=== PATIENT | female | born 1950 | race African-American/Black ===

== ENCOUNTER → 2016-11-12 | Outpatient (CLI) | payer OTHER ==
[~2016-11-12] VITALS: Ht 157.5 cm; Wt 76.1 kg
[~2016-11-12] MED LIST: AMBIEN 10 MG TA10 MG PO; AMBIEN 5 MG TABL5 M1 PO; AMLODIPINE BESY10 MG PO; APAP500 PO; ASPIRIN325 PO; BUSPIRONE HCL10 MG PO; CARBAMAZEPINE200 M2 PO; CELEXA40 MG PO; COLACE 100 MG100 MG PO; CYMBALTA PO; ENDOCET 5-3251 EACH PO; EXCEDRIN CAPLE1 EACH PO; FENTANYL PA25 MCG/HR TRANSDERM; HYDROCHLOROTH12.5 M1 PO; HYDROCHLOROTHIA25 M1 PO; HYDROCODON-ACE1 EAC4 PO; HYDROCODON-ACE1 EAC5 PO; HYDROCODONE-AP1 EA14 PO; HYDROCODONE-APA1 TA1 PO; IBUPROFEN 800800 M1 PO; LEVOTHROID75 MCG PO; LYRICA; LYRICA 75 MG CA75 MG PO; LYRICA25 PO; MEDROLDOSEPACK; MOBIC15 MG PO; NORCO 10-325 T1 EAC1 PO; NORCO 10-325 T1 EACH PO; NORCO 5-325 TA1 EACH PO; OXYBUTYNIN 5 MG5 M1 PO; OXYBUTYNIN 5 MG5 M2 PO; OXYCODONE HCL 55 MG PO; OXYCODONE HCL15 MG PO; OXYCODONE-ACET1 EAC2 PO; OXYCODONE-ACET1 EACH PO; OXYCODONE-APAP1 EAC6 PO; OXYCONTIN CR 2020 MG PO; OXYCONTIN20 M1 PO; OXYCONTIN30 MG PO; OXYCONTIN40 MG PO; PAMELOR25 MG PO; PERCOCET 5-3251 EACH PO; PERCOCET 7.5-31 EACH PO; PLAVIX 75 MG TA75 M1 PO; PREDNISONE 10 M10 M1 PO; PREDNISONE 5 MG5 MG PO; PREMARIN0.45 MG PO; PREMARIN0.625 MG PO; PRISTIQ50 MG PO; RESTORIL15 MG PO; ROBAXIN500 MG PO; SYNTHROID75 MCG PO; TIROSINT75 MCG PO; TOVIAZ4 MG PO; TRAMADOL 50 MG50 MG PO; VALIUM10 MG PO; VALIUM5 MG PO; VOLTAREN GEL 1100 G1; VOLTAREN GEL 1100 G1 TOP; ZANAFLEX2 M1 PO; ZOLOFT50 MG PO
--- NOTE | ~2016-11-12 | HPC ---
[facility] [place] [address] PAIN MANAGEMENT CONSULTATION Name: ANIRUDH DUQUE Room #: REG BRADEN Alcides#: [id number] Admission: 11/12/16 Attend Phys: David Buchanan DO Discharge: Date of : 48 Report #: [id number] THIS REPORT FOR: //name// CC: Vance Buchanan The patient is a 66-year-old female being treated for symptomatic lumbar radiculopathy status post decompressive laminectomy, chronic pain syndrome requiring complex medication management. Comorbidity includes trochanteric bursitis, left greater than right. Last seen in the pain clinic 09/14/2016. Continued on baseline narcotic including OxyContin 40 mg b.i.d., Percocet 10/325 up to 4 a day, limit to 100 tablets for 30 days. Returns to pain clinic today. At that last visit, we had slightly decreased her p.r.n. medication, dropped Percocet 10/325 down to 7.5/325 tablet. The patient returns to pain clinic today. She typically is treated by Dr. Toño Christie. She notes current medications are generally providing sufficient analgesia to participate in activities of daily living, albeit her pain remains fairly problematic at a "8-9" on a 0-10 visual analog scale, low back, left hip greater than right pain, chronic dull aching, exacerbated with standing and walking. PHYSICAL EXAMINATION: Shows 66-year-old female, BMI is 30.7 kg/m2. Vital signs stable as noted in the EMR. Rises from chair using the armrest, modestly antalgic gait, slightly limited range of motion of left ankle, status post prior surgery here. We reviewed the fact that opiate medications are being used to provide analgesia adequate to support activities of daily living, not attempting to achieve a specific pain score on the 0-10 Visual Analog Scale. The current opiate medications are providing sufficient analgesia to allow the patient to participate in activities of daily living. The patient is not exhibiting any aberrant behavior suggestive of drug diversion. The patient is not having any adverse reactions to medications. The patient is not suffering from daytime somnolence or mental acuity changes. The patient is managing opiate-induced constipation with appropriate fdmn-cbe-dwdybyd agents and dietary considerations. The patient was counseled on concern for caution with operating a motor vehicle while using opiate medications. A physical exam was performed and the patient's functional status was evaluated. All patients with back pain were advised against the bed rest greater than 4 days and were advised to return to normal activities. Pain score assessment was noted and the treatment plan was reviewed with the patient. All current medications, both prescribed and OTC were reviewed and reconciled on the electronic medical record. Tobacco screening was accomplished and smoking cessation was advised when indicated. BMI was noted and diet/[place] [address] PAIN MANAGEMENT CONSULTATION Name: MARCIANO DEL CIDANIRUDH Room #: REG BRADEN Mcgrath#: [id number] Admission: 11/12/16 Attend Phys: David Buchanan DO Discharge: Date of : 48 Report #: [id number] modification was recommended for all patients following outside normal parameters. I reviewed with the patient today their responsibilities to safeguard prescription medications, reviewed their responsibility to utilize medications only as prescribed by the physician. They are to seek and receive pain medications only from 1 physician group ( [facility]). They are to use 1 pharmacy and keep the clinic informed if they change pharmacies. Their responsibilities include making followup visits in a timely fashion and to avoid abrupt discontinuation of medication usage. Their responsibilities further include bringing their medications (bottles from the pharmacy with residual pills) to the visit for possible confirmation of pill counts and the patient understands it is their responsibility to submit to random drug screens to ensure both that the medications prescribed are present, and that no other controlled substances are present. All prescriptions provided today were generated electronically. ASSESSMENT: Symptomatic lumbar radiculopathy status post decompressive laminectomy, chronic pain syndrome requiring complex medication management, stable on baseline medications. RECOMMENDATION: Continue OxyContin 40 mg b.i.d., Percocet 7.5/325, limit to 100 tablets for 30 days. I have taken the liberty of writing for 2 months of current medication. We did review with the patient that she has had a relatively supratherapeutic dose of opiate, approximately 150 mEq of morphine. I did review with her that many insurance companies were limiting their coverage to about 100 mEq of morphine and we did briefly discuss reasons for this including opiate-induced hyperalgesia, higher incidence of complications, morbidity and mortality. Ultimately, the patient was discharged in good and stable condition with baseline medication. Follow up with Dr. Christie in 2 months. <ELECTRONICALLY SIGNED> By: David Buchanan DO 11/19/16 0858 [id number] David Buchanan DO /nt
[2016-11-12 12:51] VITALS: BP 119/68
== END | disposition home or self-care (01) ==
LOC: PAIN 06:49
DX: M54.16 Radiculopathy, lumbar region (principal); G89.4 Chronic pain syndrome; Z98.890 Other specified postprocedural states; Z87.891 Personal history of nicotine dependence

== ENCOUNTER → 2017-04-08 | Outpatient (CLI) | payer OTHER ==
[~2017-04-08] VITALS: Ht 157.5 cm; Wt 77.1 kg
[~2017-04-08] MED LIST changes: +CELEBREX 200 M200 MG PO; +OXYCODONE HCL E20 MG PO
--- NOTE | ~2017-04-08 | HPC ---
[facility] [address] [place] [address] PAIN MANAGEMENT CONSULTATION Name: ANIRUDH DUQUE Room #: REG BRADEN Sy.#: [id number] Admission: 04/08/17 Attend Phys: Toño Christie MD Discharge: Date of : 48 Report #: [id number] THIS REPORT FOR: //name// CC: Vance Christie DATE OF SERVICE: 04/08/2017 Followup visit for trochanteric bursitis and chronic low back pain status post decompressive laminectomy. The patient returns to pain clinic today and is doing well tapering her OxyContin from 40 to 30 twice a day. I told her today we are going to try and taper her further from 30 to 20 and I am going to add Celebrex 200 mg once daily for arthropathic pain throughout her back and inner hip. She would like the trochanteric bursa injection. MEDICATIONS: Reviewed and reconciled. PHYSICAL EXAMINATION: VITAL SIGNS: Blood pressure is 130/75, heart rate is 76, respirations 20. She has tenderness over the greater trochanter that radiates into the groin. She has pain with internal and external rotation, mild pain across the low back is noted. She has left low back pain and radiculopathy that has been in the past. PHYSICAL EXAMINATION: Pleasant, alert and oriented. She is well-groomed. Her voice is strong and fluent. She has no signs of overmedication, anxiety or depression. Today, blood pressure is 166/86, heart rate 97, BMI is 31.1. She has tenderness across her low back and positive straight leg raising on the left that is mild and mostly into the hip and down into the groin. She has pain with internal and external rotation of the hips. IMPRESSION: 1. Trochanteric bursitis. 2. Osteoarthritis, left hip. 3. Post-laminectomy syndrome. 4. History of depression and anxiety, much improved medication. 5. Cerebral aneurysm treated by coiling and interventional radiology 2 years ago. 6. Management of high risk medication. PLAN: I renewed her medications, current dose of OxyContin 20 mg b.i.d., oxycodone 7.5 one tablet q. 4-6 hours p.r.n., a total of 100 tablets per month. PROCEDURE: Trochanteric bursa injection. Skin was prepped with ChloraPrep. Skin anesthetized and a 25-gauge needle was used to infiltrate a total of 7 mL of 0.25% bupivacaine mixed with 40 mg of triamcinolone. She tolerated the [address] [address] PAIN MANAGEMENT CONSULTATION Name: ANIRUDH DUQUE Room #: REG [facility] Yossi.#: [id number] Admission: 04/08/17 Attend Phys: Toño Christie MD Discharge: Date of : 48 Report #: [id number] procedure well and was observed for 30 minutes and discharged. Follow up as needed. By: [id number] MD elvie Alford
[2017-04-08 10:16] VITALS: BP 166/86
== END | disposition home or self-care (01) ==
LOC: PAIN 06:07
DX: M70.62 Trochanteric bursitis, left hip (principal); G89.29 Other chronic pain; M16.12 Unilateral primary osteoarthritis, left hip; M96.1 Postlaminectomy syndrome, not elsewhere classified; F32.89 Other specified depressive episodes; F41.8 Other specified anxiety disorders; F11.20 Opioid dependence, uncomplicated; Z86.69 Personal history of other diseases of the nervous system and sense organs; Z87.891 Personal history of nicotine dependence

== ENCOUNTER → 2017-07-22 | Outpatient (CLI) | payer OTHER ==
[~2017-07-22] VITALS: Ht 157.5 cm; Wt 78.5 kg
--- NOTE | ~2017-07-22 | HPC ---
[facility] [place] [address] PAIN MANAGEMENT CONSULTATION Name: ANIRUDH TARIQ Room #: REG BRADEN Sy.#: [id number] Admission: 07/22/17 Attend Phys: Toño Christie MD Discharge: Date of : 48 Report #: [id number] THIS REPORT FOR: //name// CC: Vance Christie DATE OF SERVICE: 07/22/2017 Followup visit for chronic back pain, status post extensive lumbar fusion. The patient returns to pain clinic today complaining of pain at the level of 8/10. Pain is in her low back, radiates into her left leg. It follows an L4-L5 distribution and is chronic. It has been a worse at bit lately. She continues on pain medication under terms of an opioid agreement. The patient complains of pain in her left ankle, which was involvement in a crush injury. She has pain that radiates all the away from her back through her hip down her leg to the ankle. MEDICATIONS: OxyContin 20 mg b.i.d., oxycodone 7.5/325 one tablet t.i.d. for breakthrough. I provided with 100 tablets per month with an extra tablet on days when the pain is severe. She also uses Celebrex as a co-analgesic 200 mg once daily without side effects. Other symptoms at this time include shortness of breath with exertion, loss of appetite, constipation, fatigue, weakness, headaches, insomnia, nervousness, depression. PHYSICAL EXAMINATION: The patient is pleasant. She does not appear overmedication, depressed or anxious today. Her blood pressure is 153/90, heart rate is 103, BMI is 31.6. She is able to move from sitting to standing position and ambulate without a cane or walking assistance. Her gait seems stable. She has pain across her low back with forward flexion and extension. There is limitations in the lumbosacral segment where she has pedicle screws and rods. She has tenderness to the left of midline that radiates down into the left hip, left leg and calf. Straight leg raising is positive on that side. Sensation is intact. There is no focal weakness noted. IMPRESSION: 1. Chronic back pain with radiculopathy secondary to nerve impingements on the left. Post-laminectomy syndrome. 2. History of trochanteric bursitis, which has resolved previously with injection. 3. History of depression and anxiety, stable and improved with medication. 4. Management of high risk medication under terms of written opioid agreement. [address] [address] PAIN MANAGEMENT CONSULTATION Name: ANIRUDH TARIQ Room #: REG [facility].#: [id number] Admission: 07/22/17 Attend Phys: Toño Christie MD Discharge: Date of : 48 Report #: [id number] Current dose of medication is in long-acting and short-acting oxycodone, 62 mg per day, which equates to roughly 100 morphine milligram equivalents per day. We have tried to reduce her dose at previous visits and we will continue to monitor and use the lowest effective dose of medication. To that end, I have offered an epidural steroid injection today with hopes that we can provide some relief of her lumbar radicular symptoms, allowing us to reduce opioid medication. Potential risks and benefits were discussed and she is anxious to proceed today with anything that might provide her with additional relief. She may also be a candidate for spinal cord stimulation in the future. I have ordered buccal oral drug test for her today as well to confirm her current medication use. PROCEDURE: Lumbar epidural steroid injection under fluoroscopic guidance. She was taken to the fluoroscopic suite. She was placed prone, skin was prepped with ChloraPrep, skin anesthetized over the L3-L4 interspace. This is at the upper level of her fusion, but within the fusion, pedicle screws. Interspace was identified between 2 spinous processes there. Skin was anesthetized and a 20-gauge Tuohy epidural needle was advanced nicely into the epidural space with loss of resistance. There was no blood or CSF aspirated. 0.5 mL of Omnipaque was injected to demonstrate epidural spread. It was then followed by 3 mL of 0.5% lidocaine mixed with 80 mg of triamcinolone. She tolerated the procedure well and there was indeed reduction of pain in recovery room before discharge and followup visit is scheduled in 2-3 months. By: [id number] Toño Christie MD /nt
[2017-07-22 12:36] VITALS: BP 153/90
== END | disposition home or self-care (01) ==
LOC: PAIN 07-04 13:16
DX: M54.16 Radiculopathy, lumbar region (principal); Z79.899 Other long term (current) drug therapy; F32.9 Major depressive disorder, single episode, unspecified; F41.9 Anxiety disorder, unspecified; Z68.31 Body mass index [BMI] 31.0-31.9, adult; M96.1 Postlaminectomy syndrome, not elsewhere classified; Z87.891 Personal history of nicotine dependence

== ENCOUNTER → 2017-10-04 | Outpatient (CLI) | payer OTHER ==
[~2017-10-04] VITALS: Ht 157.5 cm; Wt 76.2 kg
[~2017-10-04] MED LIST changes: +ACETAMINOPHEN325 M1 PO; +Z-SLEEP50 MG/30 M PO
--- NOTE | ~2017-10-04 | HPC ---
[facility] [address] [address] PAIN MANAGEMENT CONSULTATION Name: ANIRUDH TARIQ Room #: REG BRADEN SyDea#: [id number] Admission: 10/04/17 Attend Phys: Huma Wilkins MD Discharge: Date of : 48 Report #: [id number] THIS REPORT FOR: //name// CC: ROGERIO Wilkins DATE OF SERVICE: 10/04/2017 FOLLOWUP COMPLAINT: Here for medication renewal. FOLLOWUP HISTORY: The patient is a 67-year-old female who has been followed in the pain clinic because of chronic pain with pain radiating down into her legs. She also is treated with medication. She suffers from post laminectomy syndrome. She feels that her medications continue to be helpful at this juncture. She has returned to the pain clinic for renewal of her medications. She rates her pain as a 9/10 today. Has pain and discomfort in the lower portion of her back down the left hip with restless leg feelings. There is some burning, throbbing and constant discomfort. Pain is worse by standing and walking. It is worse in the morning. PHYSICAL EXAMINATION: Blood pressure is 171/88, pulse 94, respiratory rate 20, room air saturation 100%. Height 5 feet 2 inches, weight 168 pounds, BMI is 31. The patient has pain and discomfort as described in the HPI with pain down into the left hip, down to the left leg involving her toes. Has restless leg type components to her discomfort. IMPRESSION: 1. Chronic back pain with radiculopathy secondary to nerve impingement on the left. 2. Post laminectomy syndrome. 3. History of trochanteric bursitis. 4. History of depression and anxiety, stable and improved on her medications. 5. Management of high risk medications under terms of written opioid agreement. RECOMMENDATIONS: We discussed the use of opioid medication with the patient. She is aware that opioid medications can cause dependency, addiction, and patient may develop tolerance. She states that she keeps her medications in a controlled environment. She would like to have her medications renewed. We will renew the patient's medication and a script for oxycodone 7.5 mg 1 p.o., total of 100 tablets dispensed, oxycodone 20 mg, 60 mg. Script for her medications has been written. She will call if she has any concerns. We would like to thank you for letting us participate in [place] [address] PAIN MANAGEMENT CONSULTATION Name: ANIRUDH TARIQ [facility]: [facility].#: [id number] Admission: 10/04/17 Attend Phys: Huma Wilkins MD Discharge: Date of : 48 Report #: [id number] follow up with Dr. Toño Christie in the near future and call him should she have any concerns or questions. By: [id number] Huma Wilkins MD /
[2017-10-04 09:46] VITALS: BP 171/88
== END ==
LOC: PAIN 06:41
DX: M54.16 Radiculopathy, lumbar region (principal); M96.1 Postlaminectomy syndrome, not elsewhere classified; F32.9 Major depressive disorder, single episode, unspecified; F41.9 Anxiety disorder, unspecified; Z79.899 Other long term (current) drug therapy

== ENCOUNTER → 2017-12-23 | Outpatient (CLI) | payer OTHER ==
[~2017-12-23] VITALS: Ht 157.5 cm; Wt 75.1 kg
[~2017-12-23] MED LIST changes: +CELEBREX 200 M200 M1 PO; +CYMBALTA30 MG PO; +CYMBALTA60 MG PO; +NEURONTIN 400400 M1 PO; +NORFLEX100 MG PO; +PREDNISONE 10 M10 MG PO
--- NOTE | ~2017-12-23 | HPC ---
[facility] [place] [address] PAIN MANAGEMENT CONSULTATION Name: ANIRUDH TARIQ Room #: REG BRADEN RuslanGifty.#: [id number] Admission: 12/23/17 Attend Phys: Toño Christie MD Discharge: Date of : 48 Report #: [id number] THIS REPORT FOR: //name// CC: Vance Christie DATE OF SERVICE: 12/23/2017 Followup visit for chronic pain post-laminectomy with fusion. The patient presents to the pain clinic today. She is early for her medication. She had enough medication to last her until the end of December, but is out. This is not an unusual occurrence for her. She cannot follow the treatment plan protocol. She is already on high dose opioid therapy at 90 morphine milligram equivalents. I am reluctant to increase it further. Her impact pain score is 9-1/2/10, although she tells me this with a smile and laugh. She lies down in the bed during her visit; however, because the pain is bothersome. She says that she takes additional pain medication even though she knows she should not because the pain is severe. She is not doing regular exercise. She has some co-analgesic medications as well. Medications have been reviewed and reconciled. Her current daily dose of oxycodone is OxyContin 20 b.i.d. and oxycodone 7.5 three times a day for breakthrough pain. She also has diphenhydramine to aid with sleep, Celebrex to help with arthritis type pain, diclofenac gel, which she uses in addition, BuSpar for anxiety and sertraline for depression. She is hypertensive on amlodipine. She is a fall risk, but has not fallen within the last 3 months. She is able to do some simple housekeeping. She is on no blood thinners. Her opioid risk tool for addiction is low at 1. Her functional assessment tool shows 56/70 and affecting her dramatically in mood, general activities, walking normal work and enjoyment of life. She gets along reasonably well with others. Nonetheless, 56/70 is a high score. PHYSICAL EXAMINATION: She is pleasant, alert and oriented without signs of overmedication. She bargains a bit with me for additional medication. Her blood pressure is 163/103, heart rate 99 and BMI is 30.3. She was lying down on the cart. When I came in the room, she was able to get up independently. She walked down the batista with a slow measured antalgic gait. She has pain across her low back and tenderness across her scar. She has pain with forward flexion and extension. Bilateral straight leg raising discomfort into the left hip and down the left leg. [facility] [address] [place] [address] PAIN MANAGEMENT CONSULTATION Name: ANIRUDH TARIQ [facility]: [facility] [id number] Admission: 12/23/17 Attend Phys: Toño Christie MD Discharge: Date of : 48 Report #: [id number] IMPRESSION: 1. Chronic intractable low back pain with radiculopathy secondary to nerve impingement. 2. Trochanteric bursitis. 3. History of depression and anxiety. 4. Management of high risk medications under terms of written opioid agreement. RECOMMENDATIONS: 1. Continue with her medication as planned. 2. Consider that she might be a candidate for spinal cord stimulation. We discussed a trial of this therapy before in the past. She has shown limited interest. 3. Follow up in one month. If she over utilized her medication in a month, then I will request that she be seen at monthly intervals and that is how she can manage her medication more effectively. I should note that we have reduced her medicines some and the same pattern was seen when she was on higher doses as well. <ELECTRONICALLY SIGNED> By: Toño Christie MD 01/01/18 1640 [id number] [id number] Toño Christie MD /nt
[2017-12-23 13:53] VITALS: BP 163/103
== END ==
LOC: PAIN 07:22
DX: M54.16 Radiculopathy, lumbar region (principal); M70.60 Trochanteric bursitis, unspecified hip; Y93.89 Activity, other specified; F32.9 Major depressive disorder, single episode, unspecified; F41.9 Anxiety disorder, unspecified; F11.90 Opioid use, unspecified, uncomplicated

== ENCOUNTER → 2018-01-20 | Outpatient (CLI) | payer OTHER ==
[~2018-01-20] VITALS: Ht 157.5 cm; Wt 73.9 kg
[~2018-01-20] MED LIST changes: -CYMBALTA30 MG PO; -CYMBALTA60 MG PO; -NEURONTIN 400400 M1 PO; -NORFLEX100 MG PO; -PREDNISONE 10 M10 MG PO
--- NOTE | ~2018-01-20 | HPC ---
[facility] [address] [address] PAIN MANAGEMENT CONSULTATION Name: ANIRUDH TARIQ Room #: REG BRADEN RuslanGifty.#: [id number] Admission: 01/20/18 Attend Phys: Toño Christie MD Discharge: Date of : 48 Report #: [id number] THIS REPORT FOR: //name// CC: Vance Christie DATE OF SERVICE: 01/20/2018 Followup visit for chronic back pain, post laminectomy and fusion. The patient presents back to the pain clinic today for renewal of her pain medication. She has pain in her left hip with exquisite tenderness over the greater trochanter. It is her greatest pain today, but she also has pain in the low back and into her legs. She has been on opioids for some time and is currently receiving OxyContin 20 mg b.i.d. and oxycodone 7.5/325 three times daily. Totaling up the dose, she is on 93.75 morphine equivalents. This is slightly over CDC guideline for long-term complicated patients. She is reporting that her pain is a 10/10 and she wants additional medication. I am reluctant to provide it for her. We have discussed additional options for treatment, which might include spinal cord stimulation, but she has little interest in that. PQRS review shows that she has osteoarthritis of the left hip. Her BMI is 29.8 and she has been able to control her weight. She is not a fall risk, has not fallen in the last 3 months, carefully using a cane. This is an improvement. She is on no blood thinner, but is under treatment for hypertension. She has an opioid agreement, it was signed last on 05/24/2016 and she has completed an opioid risk tool, shows that she is at low risk for addiction. Her functional assessment tool, however, shows that she is doing poorly with a functional score of 56/70. She would convince me that if I just increased her narcotics, we might be able to lower that score. Today's climate, I am reluctant to do so. IMPRESSION: 1. Chronic back pain with radiculopathy secondary to nerve impingement. 2. Post-laminectomy syndrome. 3. Left trochanteric bursitis. 4. History of depression and anxiety, improved. 5. Management of high risk medications under terms of written opioid agreement. PLAN: I renewed her medications with a second month provided. She will be provided with prescriptions for 2-3 months if she can manage her 90 morphine equivalents per day without over taking it. She understands that she needs to continue to remain active and use nonpharmacologic pain management techniques that we have discussed in previous visits. [address] [address] PAIN MANAGEMENT CONSULTATION Name: ANIRUDH TARIQ ZACKERY Room #: REG BRADEN Mcgrath#: [id number] Admission: 01/20/18 Attend Phys: Toño Christie MD Discharge: Date of : 48 Report #: [id number] I would like her to consider spinal cord stimulation. She might be an ideal candidate given her pain. ADDENDUM: The patient also received an injection for treatment of her left trochanteric bursitis during today's visit. PROCEDURE: The patient was placed in the right lateral decubitus position after signing an informed consent. Skin was prepped with ChloraPrep. A 25-gauge needle was then utilized to inject the trochanteric bursa with 40 mg of triamcinolone and 0.5% bupivacaine 4 mL. She tolerated the procedure well. Pain score was only slightly reduced at the conclusion of the procedure, but was down from her 10/10 pain on admission. She tolerated the procedure well. By: [id number] Toño Christie MD /nt
--- NOTE | ~2018-01-20 | HPC ---
[facility] [place] [address] PAIN MANAGEMENT CONSULTATION Name: ANIRUDH TARIQ Room #: REG BRADEN Yossi.#: [id number] Admission: 01/20/18 Attend Phys: Toño Christie MD Discharge: Date of : 48 Report #: [id number] THIS REPORT FOR: //name// CC: Vance Christie ADDENDUM: The patient also received an injection for treatment of her left trochanteric bursitis during today's visit. PROCEDURE: The patient was placed in the right lateral decubitus position after signing an informed consent. Skin was prepped with ChloraPrep. A 25-gauge needle was then utilized to inject the trochanteric bursa with 40 mg of triamcinolone and 0.5% bupivacaine 4 mL. She tolerated the procedure well. Pain score was only slightly reduced at the conclusion of the procedure, but was down from her 10/10 pain on admission. She tolerated the procedure well. By: [id number] Toño Christie MD /nt
[2018-01-20 09:55] VITALS: BP 135/95
== END | disposition home or self-care (01) ==
LOC: PAIN 07:21
DX: M70.62 Trochanteric bursitis, left hip (principal); M54.16 Radiculopathy, lumbar region; G89.29 Other chronic pain; M96.1 Postlaminectomy syndrome, not elsewhere classified; M16.12 Unilateral primary osteoarthritis, left hip; Z86.59 Personal history of other mental and behavioral disorders; Z79.891 Long term (current) use of opiate analgesic; Z98.890 Other specified postprocedural states; Z87.891 Personal history of nicotine dependence

== ENCOUNTER → 2018-03-17 | Outpatient (CLI) | payer OTHER ==
[~2018-03-17] VITALS: Ht 157.5 cm; Wt 73.4 kg
[~2018-03-17] MED LIST changes: +CYMBALTA30 MG PO
--- NOTE | ~2018-03-17 | HPC ---
[facility] [place] [address] PAIN MANAGEMENT CONSULTATION Name: ANIRUDH TARIQ Room #: REG BRADEN Sy.#: [id number] Admission: 03/17/18 Attend Phys: Toño Christie MD Discharge: Date of : 48 Report #: [id number] THIS REPORT FOR: //name// CC: Kurt Christie DATE OF SERVICE: 03/17/2018 Followup visit for post-laminectomy syndrome with fusion with lumbar radiculopathy, chronic. Management of high risk medication. The patient returns to pain clinic today reporting that her pain scores are still high. She tells me that her pain is a 9-10 despite the high dose opioids that she is receiving. I have offered her injections, she does not have an interest. We talked about spinal cord stimulation. She also is not interested in proceeding with that trial. Medication does provide some relief and she is grateful for the relief that she gets. I told her that we are trying to keep her dose as low as possible. I have been able to taper her to OxyContin 20 mg twice a day with oxycodone 7.5 three times a day for breakthrough pain. This totals 62.5 oxycodone milligrams, which equates to roughly 95 MME. She has completed an opioid risk tool, which is low. She has an opioid agreement, which has been renewed on a couple of occasions, most recently on 05/24/2016. We performed intermittent drug screening tests to ensure that she is taking medication as prescribed. She follows with Dr. Fernández for hypertension. She does not take a blood thinner. She is not a fall risk and has been pretty good as far as being stable on her feet for the last few months. She is not hypertensive. She has watched her weight and kept it under 30, BMI at 29.6. She does have some osteoarthritis primarily of the knees, hips and the lower extremities. PHYSICAL EXAMINATION: 5 feet 2 inches, 168 pounds, BMI of 29.6. Blood pressure 158/83, heart rate 91, respirations 16, O2 sat 97%. She is able to move independently from sitting to standing position, ambulates without difficulty. Straight leg raising bilaterally in lower extremities is mild to modest. She has pain across her low back with forward flexion, extension and localized tenderness. Scars are tender. IMPRESSION: 1. Chronic intractable back pain with radiculopathy, status post aggressive lumbar fusion with Dr. Boogie Jackson several years ago. 2. Trochanteric bursitis, resolved after injection. 3. History of depression and anxiety. 4. Management of high risk medications [place] [address] PAIN MANAGEMENT CONSULTATION Name: ANIRUDH TARIQ Room #: REG CLCas Mcgrath#: [id number] Admission: 03/17/18 Attend Phys: Toño Christie MD Discharge: Date of : 48 Report #: [id number] PLAN: 1. I have renewed her oxycodone as above. Release date prescriptions for 2, 4 and 8 months. 2. I have suggested that we trial a new antidepressant for pain with Cymbalta 30 mg per day and discontinue her current antidepressant, which has been somewhat effective, but does not seem to provide much relief of her depression. 3. Continue with anti-inflammatories as described in previous dictations. 4. Follow up in 2 months. By: [id number] Toño Christie MD /nt
[2018-03-17 13:49] VITALS: BP 158/83
== END ==
LOC: PAIN 07:13
DX: M54.16 Radiculopathy, lumbar region (principal); G89.29 Other chronic pain; M70.60 Trochanteric bursitis, unspecified hip; F32.9 Major depressive disorder, single episode, unspecified; F41.9 Anxiety disorder, unspecified

== ENCOUNTER → 2018-05-05 | Outpatient (CLI) | payer OTHER ==
[~2018-05-05] VITALS: Ht 157.5 cm; Wt 72.3 kg
--- NOTE | ~2018-05-05 | HPC ---
[facility] [place] [address] PAIN MANAGEMENT CONSULTATION Name: ANIRUDH TARIQ Room #: REG BRADEN Sy.#: [id number] Admission: 05/05/18 Attend Phys: Toño Christie MD Discharge: Date of : 48 Report #: [id number] THIS REPORT FOR: //name// CC: Kurt Christie DATE OF SERVICE: 05/05/2018 SUBJECTIVE: Followup visit for chronic low back pain, post-laminectomy with fusion, left hip pain. The patient is here today for a followup regarding the use of chronic pain medication. She has been on a written opioid agreement with our clinic for a number of years dating back to her surgery with Dr. Jackson. We have reviewed her agreement on multiple occasions. She understands important responsibilities medication carefully. She is on oxycodone extended release 20 mg twice a day and oxycodone 7.5/325 three times a day for breakthrough pain. She takes her medicine on a fairly consistent basis. In the past, she has tended to take her medicine more hazardly but over the years, she has learned that she must take it carefully and cautiously to provide daily relief without developing excessive tolerance. PQRS review shows that this is a 5 feet 2 inches, 159 pounds female with a BMI of 29.1. She complains of pain in her left hip and may have left hip osteoarthritis. X-rays will be ordered. She has other joints that are painful as well but some of these antalgic joints, may be related to radiculopathy, maintain since her previous laminectomy. She is not a fall risk. Does not use a walker and has not fallen in the last 3 months. She scores her daily pain intensity, however, at a 10/10 and this is fairly consistent over the years. She is on no blood thinners. She does have hypertension, under treatment by Dr. Fernández. Her opioid medication has provided carefully under terms of written opioid agreement following the CDC guidelines. She has completed an opioid risk tool, which shows that she is at low risk. Rest of physical exam today shows that she is pleasant, alert and oriented without signs of overmedication. She is independently able to move from the examining table to a sitting and standing position. She walks without too much difficulty. There is bilateral straight leg raising in the lower extremities considered to be radiculopathy and there is tenderness across the scar in her back. [facility] [address] [place] [address] PAIN MANAGEMENT CONSULTATION Name: ANIRUDH TARIQ Room #: REG [facility].#: [id number] Admission: 05/05/18 Attend Phys: Toño Christie MD Discharge: Date of : 48 Report #: [id number] IMPRESSION: 1. Chronic intractable back pain with radiculopathy, bilateral, status post aggressive lumbar fusion. 2. Pain in the left hip consistent with osteoarthritis. 3. History of depression and anxiety. 4. Management of high risk medications under terms of written opioid agreement. PLAN: 1. I renewed her medications for 2 months with a date of release in 4 weeks. 2. Left hip x-ray ordered. 3. Follow up in 2 months. I will call if there are any specific important notable findings on the x-ray that she needs to here before her next visit. By: [id number] Toño Christie MD /nt
[2018-05-05 09:16] VITALS: BP 135/91
== END ==
LOC: PAIN 06:38
DX: M54.16 Radiculopathy, lumbar region (principal); M54.5 Low back pain; M25.552 Pain in left hip; G89.4 Chronic pain syndrome; F32.9 Major depressive disorder, single episode, unspecified; F41.9 Anxiety disorder, unspecified; Z79.891 Long term (current) use of opiate analgesic

== ENCOUNTER 2018-05-26 23:06 | Emergency (ER) | payer OTHER ==
[~2018-05-26] VITALS: Ht 157.5 cm; Wt 75.8 kg
[2018-05-27] MEDS ORDERED: PREDNISONE 10 M10 MG PO (13:47)
[2018-05-27] MEDS ORDERED: NORFLEX100 MG PO (13:47)
== END 2018-05-27 00:21 | disposition home or self-care (01) ==
LOC: ER 23:06
DX: M54.5 Low back pain (principal); G89.29 Other chronic pain; I10 Essential (primary) hypertension; Z88.0 Allergy status to penicillin; Z87.891 Personal history of nicotine dependence; Z90.710 Acquired absence of both cervix and uterus

== ENCOUNTER 2018-05-27 12:46 | Emergency (ER) | payer OTHER ==
[~2018-05-27] VITALS: Ht 157.5 cm; Wt 76.2 kg
[2018-05-27] MEDS ORDERED: NORFLEX100 MG PO (13:47)
[2018-05-27] MEDS ORDERED: PREDNISONE 10 M10 MG PO (13:47)
== END 2018-05-27 14:48 | disposition home or self-care (01) ==
LOC: ER 12:46
DX: M54.42 Lumbago with sciatica, left side (principal); G89.29 Other chronic pain; M25.552 Pain in left hip; M25.572 Pain in left ankle and joints of left foot; I10 Essential (primary) hypertension; Z90.710 Acquired absence of both cervix and uterus; Z87.891 Personal history of nicotine dependence; Z88.0 Allergy status to penicillin

== ENCOUNTER → 2018-06-05 | Outpatient (CLI) | payer OTHER ==
[~2018-06-05] MED LIST changes: +NORFLEX100 MG PO; +PREDNISONE 10 M10 MG PO
== END ==
LOC: RAD 14:01
DX: I10 Essential (primary) hypertension (principal); M25.552 Pain in left hip

== ENCOUNTER → 2018-06-09 | Outpatient (CLI) | payer OTHER ==
[~2018-06-09] VITALS: Ht 157.5 cm; Wt 68.9 kg
--- NOTE | ~2018-06-09 | HPC ---
[facility] [place] [address] PAIN MANAGEMENT CONSULTATION Name: ANIRUDH TARIQ Room #: REG BRADEN Yossi.#: [id number] Admission: 06/09/18 Attend Phys: Toño Christie MD Discharge: Date of : 48 Report #: [id number] THIS REPORT FOR: //name// CC: Vance Christie DATE OF SERVICE: 06/09/2018 Followup visit for post-laminectomy syndrome. The patient returns to the pain clinic for renewal of medication. She called for an early refill. She was told that she could not have one and that she needed to manage her medication more carefully. She understands the importance of this. I talked about the potential risks of overuse of opioids and she will make an effort to manage her medicines more carefully in the future. CURRENT MEDICATIONS: As follows: OxyContin 20 mg b.i.d., oxycodone 10/325 one tablet 3 times daily, this equates to a total daily oxycodone of 70 mg or 105 morphine milligram equivalents. Levothyroxine, hydrochlorothiazide, Cymbalta 30 mg, diphenhydramine 50 mg at bedtime, diclofenac gel, Celebrex, BuSpar, aspirin and acetaminophen p.r.n., not to exceed 3-4 tablets daily. ALLERGIES: PENICILLIN. PHYSICAL EXAMINATION: Her primary complaint today is pain along the left greater trochanter. There is exquisite tenderness there. She has some pain with hip flexion and extension, although this is modest. Straight leg raising bilaterally does reproduce some radicular pain. She has tenderness across the scar in her back from previous back surgery. IMPRESSION: 1. Post-laminectomy syndrome. 2. Trochanteric bursitis. 3. Management of high dose opioids under terms of written opioid agreement. I spent some time today reviewing with her, her responsibilities of managing her medicine. We will try an injection for the trochanteric bursa, which has been helpful in the past to provide some relief of pain. May consider rotation to a different opioid. She is over 90 morphine milligram equivalents and we will strongly consider the transition to a drug abuse deterrent medication such as Xtampza if we stick with oxycodone. The cost of these medications has been a barrier. PROCEDURE: After informed consent, she was placed in the lateral decubitus position. Skin was prepped overlying the trochanteric bursa. With a 25-gauge needle, I gently injected a total of 6 mL of 0.25% bupivacaine mixed with [address] [address] PAIN MANAGEMENT CONSULTATION Name: ANIRUDH TARIQ Room #: REG Cas Mcgrath#: [id number] Admission: 06/09/18 Attend Phys: Toño Christie MD Discharge: Date of : 48 Report #: [id number] of triamcinolone. She tolerated the procedure well. She was observed for 20 minutes and discharged. Pain was reduced in the hip. She is instructed to continue to safeguard her medications carefully and take them as instructed. <ELECTRONICALLY SIGNED> By: Toño Christie MD 06/16/18 1558 [id number] [id number] Toño Christie MD /nt
[2018-06-09 10:06] VITALS: BP 134/83
== END | disposition home or self-care (01) ==
LOC: PAIN
DX: M70.62 Trochanteric bursitis, left hip (principal); M96.1 Postlaminectomy syndrome, not elsewhere classified; G89.29 Other chronic pain; Z79.891 Long term (current) use of opiate analgesic; Z88.0 Allergy status to penicillin; Z79.899 Other long term (current) drug therapy; Z79.82 Long term (current) use of aspirin; Z87.891 Personal history of nicotine dependence

== ENCOUNTER → 2018-08-13 | Outpatient (CLI) | payer OTHER ==
[~2018-08-13] VITALS: Ht 157.5 cm; Wt 72.1 kg
[~2018-08-13] MED LIST changes: +CYMBALTA60 MG PO; +NEURONTIN 400400 M1 PO
--- NOTE | ~2018-08-13 | HPC ---
[facility] [place] [address] PAIN MANAGEMENT CONSULTATION Name: ANIRUDH TARIQ Room #: REG BRADEN Sy.#: [id number] Admission: 08/13/18 Attend Phys: Toño Christie MD Discharge: Date of : 48 Report #: [id number] THIS REPORT FOR: //name// CC: Kurt Christie DATE OF SERVICE: 08/13/2018 REASON FOR VISIT: Followup visit for chronic low back pain, post-laminectomy and fusion. HISTORY OF PRESENT ILLNESS: The patient is in the pain clinic today and is hopeful that we have some additional suggestions to help with her chronic pain. She has recently been started on gabapentin something she was on long time ago. This has been helpful and she is now up to 300 mg 3 times daily. She takes this in combination to her OxyContin 20 mg b.i.d. and oxycodone 7.5/325 three times daily. She sometimes takes an extra oxycodone and oftentimes runs out of medication towards the end of her month. We have tried to avoid increasing her opioids. I have recommended spinal cord stimulation previously and I have suggested it again today. I have also offered an epidural steroid injection. She uses diclofenac gel, heat and ice. She rests when she can. She is on co-analgesics including Cymbalta. We have tried nonsteroidal anti-inflammatory drugs in the past and she continues to complain of bitter pain. She tries to exercise, but is so difficult that often time she just simply lies down. PQRS: Review shows that this is a pleasant woman who is in csuh-ju-ygiaoweb distress. Her BMI is 29.1. Her blood pressure is 143/90, heart rate 94. Pain intensity 10. Fall risk is not noted today. She is on no blood thinners. She has history of hypertension, under treatment and is on opioid agreement. PHYSICAL EXAMINATION: VITAL SIGNS: She is 5 feet 2 inches, 159 pounds, BMI is 29. Blood pressure 143/90, heart rate 94, respirations 16. She moves from sitting to standing position, but has a fair amount of discomfort when she is standing. MUSCULOSKELETAL: She walks with uncomfortable antalgic features. She has limited range of motion across the lumbosacral spine. She has tenderness across the scar. She has bilateral straight leg raising discomfort, worse on the right than the left. Sensation is intact. Deep tendon reflexes are absent in lower extremities. IMPRESSION: 1. Post-laminectomy syndrome with radiculopathy. 2. Management of high risk medications. [address] [address] PAIN MANAGEMENT CONSULTATION Name: ANIRUDH TARIQ Room #: REG [facility] Alcides#: [id number] Admission: 08/13/18 Attend Phys: Toño Christie MD Discharge: Date of : 48 Report #: [id number] RECOMMENDATIONS: 1. Epidural steroid injection today at L2-L3 under fluoroscopic guidance. 2. Provide education today regarding spinal cord stimulation. I obviously think that she is a candidate for at least a trial. I would like to avoid increasing her opioids above the current high dose at 90 morphine milligram equivalents of oxycodone. 3. Try epidural steroid injection under fluoroscopic guidance for radicular pain. PROCEDURE: She was taken to fluoroscopic suite, placed prone, skin prepped with ChloraPrep. Skin anesthetized over the L2-L3 epidural space. A 20-gauge Tuohy epidural needle was advanced into the epidural space with loss of resistance technique. There was no blood or CSF aspirated. 1 mL of Omnipaque injected. Good spread of dye observed in the epidural space followed by 3 mL of 0.5% lidocaine. She tolerated the procedure well and was observed for 45 minutes and discharged with followup visit scheduled in the pain clinic in 2 months. I did renew her medications under terms of our written opioid agreement, I have let her know that this is a medication given ____ if she remains to make it work as we have intended and she should take it cautiously and safeguard it. By: [id number] Toño Christie MD /nt
[2018-08-13 08:41] VITALS: BP 143/90
== END | disposition home or self-care (01) ==
LOC: PAIN 06:41
DX: M54.16 Radiculopathy, lumbar region (principal); M96.1 Postlaminectomy syndrome, not elsewhere classified; G89.29 Other chronic pain; I10 Essential (primary) hypertension; Z79.891 Long term (current) use of opiate analgesic; Z88.0 Allergy status to penicillin; Z79.899 Other long term (current) drug therapy; Z79.82 Long term (current) use of aspirin; Z98.1 Arthrodesis status; Z87.891 Personal history of nicotine dependence

== ENCOUNTER → 2018-09-22 | Outpatient (CLI) | payer OTHER ==
[~2018-09-22] VITALS: Ht 157.5 cm; Wt 71.5 kg
[~2018-09-22] MED LIST changes: +CLONIDINE HCL0.2 M2 PO
--- NOTE | ~2018-09-22 | HPC ---
[facility] [address] [address] PAIN MANAGEMENT CONSULTATION Name: ANIRUDH TARIQ Room #: REG [facility] MDea.#: [id number] Admission: 09/22/18 Attend Phys: Jolie Thompson Discharge: Date of : 48 Report #: [id number] THIS REPORT FOR: //name// CC: Jolie Christie MD DATE OF SERVICE: 09/22/2018 REASON FOR FOLLOWUP VISIT TODAY: Followup for her chronic low back pain, post-laminectomy and fusion. HISTORY OF PRESENT ILLNESS: The patient returns to the pain clinic today for medications. She called last week and told us that she had lost her prescriptions and was needing a new refill. We informed the patient that she was needing a police report and should bring that to her appointment and then we would discuss medication options. The patient did call and leave a message over the weekend on answering machine that says she found her prescriptions. She did bring in her OxyContin and oxycodone and Cymbalta prescriptions with her today. When questioned why then is she here, she said that she needs them filled today. I told her a 30-day release is on Saturday and she had filled her prescriptions early last month. The patient tells me that she has 1 OxyContin script left and 1-1/2 oxycodone left, so she will be out of her medications today. She is rating her pain at a 9/10 in her low back, left hip, left ankle, left leg, toe and she is telling me that "she needs more medicine" than what Dr. Christie has been prescribing. I did mention to the fact that the patient has been taking more than prescribed if she is out today, which is 5 days early. She tells me again that her "body needs these medicines" and that is why she is out early. The patient also is hoping to get an epidural injection today. She got 60% relief for 1-1/2 weeks from her last lumbar epidural steroid injection. I informed the patient that she is here for her medication management refill today and would not be able to get an injection, but we could make an appointment. The patient does tell me that she is taking her Cymbalta as scheduled and is not needing that medicine today. She is off her Celebrex that she tells us right now, unsure why that is. The patient is unsure, but she does take her Voltaren gel and uses that on a daily basis. PQRS: 1. History of osteoarthritis in her left lower extremity and lower back. Denies rheumatoid arthritis. 2. Height is 5 feet 2 inches, weight is 157, BMI is 28.8. 3. Blood pressure 144/97, pulse is 106, respirations 20, oxygen sat is 97%. 4. Pain score is 9. 5. Fall risk: She denies dizziness. Does not need help walking or standing, [address] [address] PAIN MANAGEMENT CONSULTATION Name: ANIRUDH TARIQ Room #: REG BRADEN Mcgrath#: [id number] Admission: 09/22/18 Attend Phys: Jolie Thompson Discharge: Date of : 48 Report #: [id number] has not fallen in the last 3 months. 6. The patient is not on any blood thinners, but does have history of hypertension. 7. Opioid therapy greater than 6 weeks and opioid signed contract is on the chart. 8. Her risk assessment tool is low. Functional assessment is 56/70. 9. Her recreational drug use, she denies. She is a former smoker and does not drink alcohol. We did check the [place] prescription monitoring system and found that the patient is filling her medications the last few months from Dr. Christie but filled them on 08/04 and 08/28, which was 5 days early for a 30-day supply. Again, the patient is out early again today, 5 days early even though it is a 30-day supply of her medications. The patient also has been filling at several different pharmacies and we reminded her she is to fill at one pharmacy only. PHYSICAL EXAMINATION: This is a 68-year-old female that moves from sitting to standing with a fair amount of discomfort, complaining of pain today. Walks with an antalgic features. She has limited range of motion in her lumbar spine. Some tenderness in her lower back. Her lower extremity strength judged to be 5/5 in her major muscle groups. IMPRESSION: 1. Post-laminectomy syndrome with radiculopathy. 2. Management of high risk opioids. 3. Chronic low back pain. We reviewed the fact that opiate medications are being used to provide analgesia adequate to support activities of daily living, not attempting to achieve a specific pain score on the 0-10 Visual Analog Scale. The current opiate medications are providing sufficient analgesia to allow the patient to participate in activities of daily living. The patient is not exhibiting any aberrant behavior suggestive of drug diversion. The patient is not having any adverse reactions to medications. The patient is not suffering from daytime somnolence or mental acuity changes. The patient is managing opiate-induced constipation with appropriate dgki-gws-zuhkhjt agents and dietary considerations. The patient was counseled on concern for caution with operating a motor vehicle while using opiate medications. A physical exam was performed and the patient's functional status was evaluated. All patients with back pain were advised against the bed rest greater than 4 days and were advised to return to normal activities. Pain score assessment was noted and the treatment plan was reviewed with the patient. All current medications, both prescribed and OTC were reviewed and reconciled on the electronic medical record. Tobacco screening was accomplished and smoking cessation was advised when indicated. BMI was noted and diet/exercise [address] [address] PAIN MANAGEMENT CONSULTATION Name: ANIRUDH TARIQ [id number] Admission: 09/22/18 Attend Phys: Jolie Thompson Discharge: Date of : 48 Report #: [id number] modification was recommended for all patients following outside normal parameters. I reviewed with the patient today their responsibilities to safeguard prescription medications, reviewed their responsibility to utilize medications only as prescribed by the physician. They are to seek and receive pain medications only from 1 physician group ( [facility]). They are to use 1 pharmacy and keep the clinic informed if they change pharmacies. Their responsibilities include making followup visits in a timely fashion and to avoid abrupt discontinuation of medication usage. Their responsibilities further include bringing their medications (bottles from the pharmacy with residual pills) to the visit for possible confirmation of pill counts and the patient understands it is their responsibility to submit to random drug screens to ensure both that the medications prescribed are present, and that no other controlled substances are present. All prescriptions provided today were generated electronically. PLAN: 1. The patient returned today with prescriptions hoping to be able to fill her prescriptions today since she tells me that she has 1 OxyContin and 1-1/2 oxycodone left. A 30-day supply of her medications would allow her to fill them on Saturday. She tells me she will be out today. I explained to her in depth that she filled them early last month too, 5 days early and again she is 5 days early today. The patient tells me that she needs these pain medicines that she is hurting and what Dr. Christie has been prescribing is not enough medications. The patient does tell me that she understands the CDC guidelines and that she needs to be under 90 morphine mEq or below, but she needs her medicines. I did explain to the patient that she has been taking more than prescribed, so she is above the 90 MME. I discussed in great length about an opioid rotation with the patient, sometimes that her body needs to be reset with a new medication and that the body may respond better to this medicine because it is something that has not seen before. I mentioned Suboxone 06/05 bid The patient does not want to switch to a different medication until November. She says she cannot do that at the holidays times, just would like a refill today. 2. The patient informed that she will be able to fill her OxyContin and oxycodone on Saturday. Pharmacies will be notified not to fill them early as they have been filling 5 days early in previous months. The patient also given a clonidine prescription that she may take 1 tablet 3 times a day to prevent withdrawal symptoms until Saturday when she is able to fill this. The patient was not happy with this, but says that she will take her clonidine until Saturday. 3. The patient wishes to have an epidural and we will schedule that in one month's time with Dr. Toño Christie and she will be due for her medicines again. At that time, we will discuss Suboxone 06/05 twice a day prescription again for an opioid rotation. 4. The patient will be seen on [address] [address] PAIN MANAGEMENT CONSULTATION Name: ANIRUDH TARIQ Room #: REG CLCas Sy.#: [id number] Admission: 09/22/18 Attend Phys: Jolie Thompson Discharge: Date of : 48 Report #: [id number] a monthly basis for her medication management since the patient has been taking the medications too soon and filling and losing her prescriptions or misplacing them. The patient is seen today in collaboration with Dr. Toño Christie. <ELECTRONICALLY SIGNED> By: Jolie Thompson 09/23/18 0848 [id number] [id number] Jolie Thompson /jhony
[2018-09-22 10:04] VITALS: BP 144/97
== END ==
LOC: PAIN 07:46
DX: M96.1 Postlaminectomy syndrome, not elsewhere classified (principal); M54.16 Radiculopathy, lumbar region; G89.29 Other chronic pain; Z79.891 Long term (current) use of opiate analgesic

== ENCOUNTER → 2018-10-23 | Outpatient (CLI) | payer OTHER ==
[~2018-10-23] VITALS: Ht 157.5 cm; Wt 66.0 kg
[~2018-10-23] MED LIST changes: +MIRTAZAPINE7.5 MG PO
--- NOTE | ~2018-10-23 | HPC ---
[facility] [address] [address] PAIN MANAGEMENT CONSULTATION Name: ANIRUDH TARIQ Room #: REG BRADEN Sy.#: [id number] Admission: 10/23/18 Attend Phys: Toño Christie MD Discharge: Date of : 48 Report #: [id number] THIS REPORT FOR: //name// CC: Kurt Christie DATE OF SERVICE: 10/23/2018 CHIEF COMPLAINT: Left trochanteric bursa pain. SUBJECTIVE: The patient struck her left hip a few weeks ago and now complains of pain of 10/10 in her left hip. We also see and treat her for chronic back pain. She has had extensive problems with low back pain following lumbar surgery. She has had 2 previous surgeries including fusion and in addition suffers in her lower extremities from radiculopathy as well as pain in her left ankle following plating and pinning surgery. She is under an opioid agreement. She is at low risk for addiction, but has had difficulty managing her medications. We have discussed the possible transition to Suboxone. She sees her primary care physician regularly and is on medication for hypertension. All medications were reviewed and reconciled and are noted on the electronic medical record and will not be repeated here. She has fallen within the last 3 months due to problems with her left hip and would be considered a fall risk related to pain and weakness of the lower extremities. She denies dizziness. She has osteoarthritis involving the ankle and the hip on the left. PHYSICAL EXAMINATION: VITAL SIGNS: Blood pressure 147/97, heart rate 99, respirations 20. Her BMI is 26.6. Her gait is antalgic. CHEST: Clear. CARDIAC: Rhythm is regular. MUSCULOSKELETAL: She has tenderness across her back and her scar from previous surgery. Straight leg raising is bilaterally painful. Localized tenderness over the greater trochanter on the left. IMPRESSION: 1. Left trochanteric bursitis. 2. Post-laminectomy syndrome with radiculopathy. 3. Management of high risk medications under terms of written opioid agreement. [address] [address] PAIN MANAGEMENT CONSULTATION Name: ANIRUDH TARIQ Room #: REG BRADEN Mcgrath#: [id number] Admission: 10/23/18 Attend Phys: Toño Christie MD Discharge: Date of : 48 Report #: [id number] PLAN: 1. We will perform trochanteric bursa injection today. 2. The patient has medications that will carry her through 11/2018 at current doses. OxyContin 20 mg b.i.d., oxycodone 7.5 three times daily as needed for breakthrough pain. We have discussed the transition to Suboxone. She is open to trying to minimize her use of opioids. PROCEDURE: With the patient placed in the right lateral decubitus position, skin was prepped with ChloraPrep. A 25-gauge 2-inch needle was used to infiltrate the trochanteric bursa with 4 mL of 0.5% bupivacaine with 40 mg of triamcinolone. She tolerated the procedure well, was observed for 30 minutes and discharged. Followup visit scheduled as needed in 11/2018. By: [id number] Toño Christie MD /nt
[2018-10-23 10:10] VITALS: BP 147/97
== END | disposition home or self-care (01) ==
LOC: PAIN 08:42
DX: M70.62 Trochanteric bursitis, left hip (principal); M16.12 Unilateral primary osteoarthritis, left hip; M19.072 Primary osteoarthritis, left ankle and foot; M96.1 Postlaminectomy syndrome, not elsewhere classified; I10 Essential (primary) hypertension; Z88.0 Allergy status to penicillin; Z79.899 Other long term (current) drug therapy; Z79.82 Long term (current) use of aspirin; Z87.891 Personal history of nicotine dependence

== ENCOUNTER → 2018-11-17 | Outpatient (CLI) | payer OTHER ==
[~2018-11-17] VITALS: Ht 157.5 cm; Wt 75.8 kg
[~2018-11-17] MED LIST changes: +SUBOXONE 8 MG-1 EAC3 SUBLING
[2018-11-17 10:39] VITALS: BP 159/98
--- NOTE | 2018-11-17 10:43 | NUR ---
Pain Clinic Assessment: 1. History of Osteoarthritis: Left Lower Extremity History of Rheumatoid Arthritis: Not Applicable 2. Height: 5 ft. 2 in. 157.5 cm. Weight: 167.0 lb. oz. 75.751 kg. Patient's BMI: 30.5 3. Vital Signs: BP: 159/98 Pulse: 117 Resp: 15 Temp: 02 Sat: 97 ECG Mon: 4. Pain Intensity: 10 5. Fall Risk: Dizziness: N Needs help standing or walking: N Fallen in the last 3 months: N Fall risk comments: 6. Patient on Blood Thinner: None 7. History of Hypertension: Y 8. Opioid Therapy greater than 6 weeks: Y Opiate Contract Signed: 05/24/16 9. Risk Assessment Tool Provided: LOW RISK 1 10. Functional Assessment Tool: 11. Recreational Drug Use: Never Drug Type: Tobacco Use: Former Smoker Tobacco Type: Amount or Packs/day: How Many Years: Alcohol Use: No Frequency: Quant:
--- NOTE | 2018-11-18 07:59 | HPC ---
[facility] [address] [address] PAIN MANAGEMENT CONSULTATION Name: ANIRUDH TARIQ Room #: REG [facility].#: [id number] Admission: 11/17/18 Attend Phys: Jolie Thompson Discharge: Date of : 48 Report #: [id number] THIS REPORT FOR: //name// CC: Jolie Thompson Vance Sandersasia Here for left trochanteric bursa pain and chronic low back pain, post-laminectomy and fusion. HISTORY OF PRESENT ILLNESS: The patient returns to the pain clinic today for a refill of her medications. She tells me that she is out of her medicines today. She has been out for about 3 days, which is actually about 10 days early. The patient is showing some signs of withdrawal. Her pulse is elevated. Blood pressure elevated. She tells me that she has pain all over her body, but especially in her low back, left hip and left leg of an achy, leg pain, rating at 10/10, worse with walking. The medications are helpful, but she says that she needs more but she is not getting enough, so she has to take more so she has run out. The patient does tell me though that the Remeron that Dr. hCristie prescribed to her last month has helped greatly and she is sleeping so much better taking the Remeron. She would like a refill of her medications today. CURRENT LIST OF ALLERGIES: PENICILLIN. CURRENT LIST OF MEDICATIONS: Oxycodone 7.5/325, mirtazapine 7.5 mg at bedtime, duloxetine 30 mg daily, Neurontin 400 mg at bedtime, Premarin 0.45, Tylenol Extra Strength as needed, Benadryl as needed, hydrochlorothiazide 12.5 mg daily, OxyContin 20 mg twice a day, aspirin 325 mg daily and thyroid medicine Synthroid 75 mcg daily. PQRS: 1. History of osteoarthritis in her lower extremities. Denies rheumatoid arthritis. 2. 5 feet 2 inches, 167, BMI is 30.5. 3. Blood pressure is 159/98, pulse is 117, respirations 15, oxygen sat 97%. 4. Pain score is 10/10. 5. Fall risk: No dizziness. Does not need help walking and has fallen in the last 3 months. 6. She is not on any blood thinners and takes antihypertensive medicines. 7. Opioid therapy is greater than 6 weeks, therefore, an opioid signed contract is on the chart. Her risk assessment tool is low. Her functional assessment is 56/70. Recreational drug use, she denies. She is a former smoker and does not drink alcohol. Check the prescription monitoring system. She filled the last on 10/23, is not due for a refill today. There is a drug screen on the chart within the last year. PHYSICAL EXAMINATION: GENERAL: This is an alert and orientated female [place] [address] PAIN MANAGEMENT CONSULTATION Name: ANIRUDH TARIQ Room #: REG BRADEN Mcgrath#: [id number] Admission: 11/17/18 Attend Phys: Jolie Thompson Discharge: Date of : 48 Report #: [id number] Her affect is appropriate. HEENT: Normocephalic, atraumatic. Extraocular eye muscles are intact. Mucous membranes are moist. Her hearing is adequate. NECK: No JVD or adenopathy. Range of motion is appropriate. EXTREMITIES: Lower extremity, walks with an antalgic gait. Complains of tenderness across her low back and especially in her left bursa area. IMPRESSION: 1. Left trochanteric bursitis. 2. Post-laminectomy syndrome with radiculopathy. 3. Management of high risk medication under terms of written opioid agreement. 4. Opioid use disorder. We reviewed the fact that opiate medications are being used to provide analgesia adequate to support activities of daily living, not attempting to achieve a specific pain score on the 0-10 Visual Analog Scale. The current opiate medications are providing sufficient analgesia to allow the patient to participate in activities of daily living. The patient is not exhibiting any aberrant behavior suggestive of drug diversion. The patient is not having any adverse reactions to medications. The patient is not suffering from daytime somnolence or mental acuity changes. The patient is managing opiate-induced constipation with appropriate [id number] agents and dietary considerations. The patient was counseled on concern for caution with operating a motor vehicle while using opiate medications. A physical exam was performed and the patient's functional status was evaluated. All patients with back pain were advised against the bed rest greater than 4 days and were advised to return to normal activities. Pain score assessment was noted and the treatment plan was reviewed with the patient. All current medications, both prescribed and OTC were reviewed and reconciled on the electronic medical record. Tobacco screening was accomplished and smoking cessation was advised when indicated. BMI was noted and diet/exercise modification was recommended for all patients following outside normal parameters. I reviewed with the patient today their responsibilities to safeguard prescription medications, reviewed their responsibility to utilize medications only as prescribed by the physician. They are to seek and receive pain medications only from 1 physician group ([facility]). They are to use 1 pharmacy and keep the clinic informed if they change pharmacies. Their responsibilities include making followup visits in a timely fashion and to avoid abrupt discontinuation of medication usage. Their responsibilities further include bringing their medications (bottles from the pharmacy with residual pills) to the visit for possible confirmation of pill counts and the patient understands it is their responsibility to submit to random drug screens to ensure both that the medications prescribed are present, and that no other [facility] [address] [place] [address] PAIN MANAGEMENT CONSULTATION Name: ANIRUDH TARIQ [id number] Admission: 11/17/18 Attend Phys: Jolie Thompson Discharge: Date of : 48 Report #: [id number] controlled substances are present. All prescriptions provided today were generated electronically. PLAN: 1. We discussed treatment options today. I had previously discussed with the patient in September about rotating to Suboxone 06/05 for her chronic pain and her opioid misuse syndrome. She tells me that the medications have not been helpful in controlling her pain and she is also taking more than prescribed. So therefore today, we will switch her to this different long acting medication. She will not be given any breakthrough pain medicine. I explained the use of the medications to the patient. She is in agreement to try hoping that it will decrease her pain that she has especially in her hip. We have given the patient Suboxone 8/2 b.i.d., #60 for 1 month. We told the patient this will be a trial for this month. We will make no changes of any of her medicines in this month. The patient verbalizes understanding. 2. The patient tells me that her mirtazapine has significantly helped with her sleep. She tells me that she takes that at bedtime as well as her Cymbalta during the day. I can tell that her attitude and frame of mind seems better today since she has been sleeping better. She has refills of these medications, so no scripts written today. 3. The patient tells me that she does take gabapentin. She is going to talk to her primary care doctor to see if she will switch her to Lyrica, has an appointment in a couple of days with that doctor. She tells me she has tried Lyrica in the past and thinks that will work better for her for gabapentin. 4. The patient denies any daytime sleepiness or constipation. I encouraged her to be as active as possible. Especially with this new medication, I think that it will greatly help her pain. 5. The patient will be seen back in 1 month time period, appointment made. 6. The patient is seen in collaboration with Dr. Toño Christie who did come and talk to the patient as well today. <ELECTRONICALLY SIGNED> By: Jolie Thompson 11/18/18 0759 [id number] Jolie Thompson /jhony
== END ==
LOC: PAIN 07:04
DX: M70.62 Trochanteric bursitis, left hip (principal); M54.16 Radiculopathy, lumbar region; M96.1 Postlaminectomy syndrome, not elsewhere classified; F11.20 Opioid dependence, uncomplicated; Y93.89 Activity, other specified; Z79.899 Other long term (current) drug therapy

== ENCOUNTER → 2018-12-15 | Outpatient (CLI) | payer OTHER ==
[~2018-12-15] VITALS: Ht 157.5 cm; Wt 80.2 kg
--- NOTE | ~2018-12-15 | HPC ---
[facility] [address] [place] [address] PAIN MANAGEMENT CONSULTATION Name: ANIRUDH TARIQ Room #: REG BRADEN RuslanGifty.#: [id number] Admission: 12/15/18 Attend Phys: Toño Christie MD Discharge: Date of : 48 Report #: [id number] THIS REPORT FOR: //name// CC: ROGERIO Christie DATE OF SERVICE: 12/15/2018 Followup visit for chronic back pain, post laminectomy with fusion, left trochanteric bursa. The patient returns to pain clinic today and we have tried to put her on Suboxone hoping that this would provide pain relief for her as well as stabilize her use of medication. She is complaining bitterly about it since we placed her on it a couple of months ago. Previously, she was on fairly high dose of oxycodone, always asking for more medication and often running out of medication complaining that her pain, which is not adequately controlled. After much discussion today, I have agreed to put her back on 4 short acting hydrocodone tablets per day. She can take 10 mg morning, afternoon and evening. We will take her off the Suboxone and see how this goes for her. Cymbalta has been helpful. We want to keep her on that as well, Neurontin 400 mg also at bedtime helpful. She is off of Benadryl. She seemed to do well on mirtazapine and I have agreed to increase that dose to 7.5 mg 2 tablets at bedtime. PQRS review, she has significant osteoarthritis in her hips and knees. Her BMI has been stable today, noted to be 32.3, a slight elevation since before the holidays. Weight loss strategies were discussed and helpful for pain management as well. She scores her pain as a 10/10, this is fairly typical. She has fallen in the last 3 months and would be considered a fall risk. She is on no blood thinners. History of hypertension is noted. She is on an opioid agreement. We are doing our best to manage her medications and provide pain relief safely. She is at low risk for addiction per the opioid risk tool. A functional assessment tool was utilized today and she is not very active. Functional assessment at 56/70 suggests that there is much interference of day-to-day activities with pain. We will try to improve upon that by changing her medications slightly. PHYSICAL EXAMINATION: GENERAL: Today, she is alert and oriented, does not appear to be overmedicated. She was lying on the bed when I entered the room. CHEST: Clear. CARDIAC: Rhythm is regular. [address] [address] PAIN MANAGEMENT CONSULTATION Name: ANIRUDH TARIQ Room #: REG [facility].#: [id number] Admission: 12/15/18 Attend Phys: Toño Christie MD Discharge: Date of : 48 Report #: [id number] Abdomen: Soft. MUSCULOSKELETAL: Examination of the spine reveals scars from previous surgery including a fusion. She has limited range of motion there. She has tenderness in her hips, particularly on the left hip where she has marked trochanteric bursitis. Straight leg raising is bilaterally positive. IMPRESSION: 1. Post laminectomy syndrome with radiculopathy. She has had a fusion as well. 2. Trochanteric bursitis on the left. 3. Management of high risk medications. PLAN: 1. Discontinue Suboxone. 2. I will give her hydrocodone, but I have made her agree that she will use a pill box placing 4 tablets per day in the pill box and she will not exceed that number on any day. We will follow up with her medication in 1 month. She will safeguard her medications carefully. This is a particularly stressful time for the patient. Her has been diagnosed with end-stage cancer as well. They moved to palliative treatment and he will not be undergoing additional cancer related treatments. We will try to be supportive of her emotionally during this difficult time for her and her family. By: [id number] Toño Christie MD /nt
[2018-12-15 10:31] VITALS: BP 148/83
--- NOTE | 2018-12-15 10:56 | NUR ---
Pain Clinic Assessment: 1. History of Osteoarthritis: Left Lower Extremity History of Rheumatoid Arthritis: Not Applicable 2. Height: 5 ft. 2 in. 157.5 cm. Weight: 176.8 lb. oz. 80.196 kg. Patient's BMI: 32.3 3. Vital Signs: BP: 148/83 Pulse: 106 Resp: 18 Temp: 02 Sat: 97 ECG Mon: 4. Pain Intensity: 10 5. Fall Risk: Dizziness: N Needs help standing or walking: N Fallen in the last 3 months: Y Fall risk comments: 6. Patient on Blood Thinner: None 7. History of Hypertension: Y 8. Opioid Therapy greater than 6 weeks: Y Opiate Contract Signed: 05/24/16 9. Risk Assessment Tool Provided: LOW RISK 1 10. Functional Assessment Tool: 11. Recreational Drug Use: Never Drug Type: Tobacco Use: Former Smoker Tobacco Type: Amount or Packs/day: How Many Years: Alcohol Use: No Frequency: Quant:
== END | disposition home or self-care (01) ==
LOC: PAIN 07:11
DX: M25.552 Pain in left hip (principal); M54.9 Dorsalgia, unspecified; Z88.0 Allergy status to penicillin; Z79.82 Long term (current) use of aspirin; Z79.899 Other long term (current) drug therapy; Z87.891 Personal history of nicotine dependence

== ENCOUNTER 2019-01-08 13:57 | Emergency (ER) | payer OTHER ==
[~2019-01-08] VITALS: Ht 167.6 cm; Wt 95.3 kg
[2019-01-08 14:51] LABS: BE(vivo) -0.5 mmol/L (-2 to +3); HCO3 22.1 mmol/L (22.0-26.0); PCO2 31.4 mmHg (35.0-45.0); PO2 70.6 mmHg (80.0-100.0); pH 7.466 (7.360-7.450); sO2 95.3 % (92.0-98.0)
[2019-01-08] MEDS ORDERED: REMERON15 MG PO (15:24)
[2019-01-08] MEDS ORDERED: LYRICA 75 MG CA75 MG PO (15:24)
[2019-01-08] MEDS ORDERED: NORVASC10 MG PO (15:25)
[2019-01-08] MEDS ORDERED: DYAZIDE 37.5-21 EACH PO (15:26)
[2019-01-08] MEDS ORDERED: ECHINACEA80 MG PO (15:27)
[2019-01-08 15:49] LABS: ABSOLUTE NEUTROPHILS 1.8 thou/uL (1.4-8.2); EOSINOPHILS 0.1 % (0.0-3.0); HEMATOCRIT 47.2 % (37.0-47.0); HEMOGLOBIN 15.8 gm/dL (12.0-15.0); LYMPHOCYTES 58.8 % (24.0-44.0); MCH 29.8 pg (26.0-34.0); MCHC 33.5 g/dL (28.0-37.0); MCV 88.8 fL (80.0-100.0); MONOCYTES 9.3 % (1.0-8.0); PLATELET COUNT 265 thou/uL (150-400); POLYS 30.8 % (36.0-66.0); RBC 5.31 mil/uL (4.20-5.00); RDW 16.8 % (10.5-14.5); WBC 5.7 thou/uL (4.0-11.0)
[2019-01-08 15:56] LABS: ANION GAP 14 mmol/L (7-16); BUN 19 mg/dL (7-18); CALCIUM 9.3 mg/dL (8.5-10.1); CHLORIDE 100 mmol/L (98-107); CO2 25 mmol/L (21-32); CREATININE 1.4 mg/dL (0.6-1.0); GLUCOSE 115 mg/dL (74-106); POTASSIUM 3.2 mmol/L (3.5-5.1); SODIUM 139 mmol/L (136-145)
[2019-01-08 16:05] LABS: ALBUMIN 3.2 g/dL (3.4-5.0); LIPASE 420 U/L (73-393); SGOT 28 U/L (15-37); SGPT 22 U/L (30-65); TOTAL BILIRUBIN 0.2 mg/dL (<0.1-1.0); TROPONIN-I <0.06 ng/mL (<0.06)
--- NOTE | 2019-01-08 16:20 | EKG ---
[facility] [address] [place] [address] ELECTROCARDIOGRAM REPORT Name: ANIRUDH TARIQ Room #: REG [facility]#: [id number] ������������������ Admission: 01/08/19 ������������������ Attend Phys: Discharge: ������������������ Date of : 48 Report #: [id number] ����������������������������������������������������������������� [id number] THIS REPORT FOR: //name// [facility] ED Test Date: 2019-01-08 Test Time: 14:31:13 Pat Name: ANIRUDH TARIQ Department: Room: Gender: F Mac Developer: WG : 1950 Requested By: Merced Vaughan Order Number: [id number] MD: Jones Blood Measurements Intervals Steen Rate: 105 P: 25 NV: 153 QRS: -53 QRSD: 92 T: 33 QT: 369 QTc: 488 Interpretive Statements Sinus tachycardia Left anterior fascicular block Abnormal R-wave progression, late transition Borderline prolonged QT interval Compared to ECG 01/08/2015 00:33:06 ST (T wave) deviation no longer present Electronically Signed On 01-08-2019 16:20:10 VOICE OVER ARTIST by Jones Blood [email or web address] ��������������������������������������������� <ELECTRONICALLY SIGNED> ���������������������������������������� By: Jones Blood MD, [facility] ��������������������������������������������� 01/08/19 1620 1431 1431 Jones Blood MD, [facility] /EPI
[2019-01-08 17:11] VITALS: BP 132/81
[2019-01-08] MEDS ORDERED: OSELB75 PO (17:12)
[2019-01-08] MEDS ORDERED: ALBUTEROL2.5 MG/31 INH (17:12)
[2019-01-12] MEDS ORDERED: TAMIFLU75 MG PO (09:33)
[2019-01-12] MEDS ORDERED: CYMBALTA30 MG PO (09:39)
[2019-01-12] MEDS ORDERED: ALBUTEROL2.5 MG/31 INH (09:40)
== END 2019-01-08 17:24 | disposition home or self-care (01) ==
LOC: ER 13:57
PROVIDERS: Physician Assistant
DX: J11.1 Influenza due to unidentified influenza virus with other respiratory manifestations (principal); N17.9 Acute kidney failure, unspecified; E87.6 Hypokalemia; I10 Essential (primary) hypertension; Z87.891 Personal history of nicotine dependence; Z88.0 Allergy status to penicillin; Z90.710 Acquired absence of both cervix and uterus

== ENCOUNTER → 2019-01-12 | Outpatient (CLI) | payer OTHER ==
[~2019-01-12] VITALS: Ht 157.5 cm; Wt 74.4 kg
[~2019-01-12] MED LIST changes: +ALBUTEROL2.5 MG/31 INH; +DYAZIDE 37.5-21 EACH PO; +ECHINACEA80 MG PO; +NORVASC10 MG PO; +OSELB75 PO; +REMERON15 MG PO; +TAMIFLU75 MG PO
[2019-01-12 09:34] VITALS: BP 136/93
--- NOTE | 2019-01-12 09:36 | NUR ---
Pain Clinic Assessment: 1. History of Osteoarthritis: Left Lower Extremity History of Rheumatoid Arthritis: Not Applicable 2. Height: 5 ft. 2 in. 157.5 cm. Weight: 164.0 lb. oz. 74.390 kg. Patient's BMI: 30.0 3. Vital Signs: BP: 136/93 Pulse: 107 Resp: 16 Temp: 02 Sat: 97 ECG Mon: 4. Pain Intensity: 9 5. Fall Risk: Dizziness: N Needs help standing or walking: N Fallen in the last 3 months: N Fall risk comments: 6. Patient on Blood Thinner: None 7. History of Hypertension: Y 8. Opioid Therapy greater than 6 weeks: Y Opiate Contract Signed: 05/24/16 9. Risk Assessment Tool Provided: LOW RISK 1 10. Functional Assessment Tool: / 11. Recreational Drug Use: Never Drug Type: Tobacco Use: Former Smoker Tobacco Type: Amount or Packs/day: How Many Years: Alcohol Use: No Frequency: Quant:
--- NOTE | 2019-01-13 08:54 | HPC ---
[facility] [address] [address] PAIN MANAGEMENT CONSULTATION Name: ANIRUDH TARIQ Room #: REG Cas Sy.#: [id number] Admission: 01/12/19 ������������������ Attend Phys: Jolie Thompson Discharge: ������������������ Date of : 48 Report #: [id number] THIS REPORT FOR: //name// CC: Jolie Thompson [facility] DATE OF SERVICE: 01/12/2019 CHIEF COMPLAINT: Chronic back pain, post-laminectomy with fusion, left trochanteric bursa. HISTORY OF PRESENT ILLNESS: The patient returned to the pain clinic today for refill of her medications for her chronic back pain and ongoing left hip pain. The patient tells me that her hip was better after her last injection for a few days, but she has been caring for her who has been diagnosed with a terminal cancer and is on palliative care; so therefore, the injection was short-lived being that she was so active and caring for him. She tells me that she has been out of her medications for one week that she has had the flu, has been to the Emergency Room and received Tamiflu and still not feeling well today. Does have a mask on, but is in need of a refill of her medications. She is on time for her visit today though she had called last week stating that she was out and needed a refill, but did not pick out hand that medication. The patient places her pain score today at 9/10. Denies any problems with constipation or daytime sleepiness. She is also requesting orthopedic surgeon's name that Dr. Christie has used. ALLERGIES: PENICILLIN. CURRENT LIST OF MEDICATIONS: Tamiflu, albuterol inhaler as needed, Echinacea one 80 mg tablet as needed for cold symptoms, triamterene/hydrochlorothiazide daily, Norvasc 10 mg daily, Lyrica 75 mg daily, Remeron 15 mg at bedtime, hydrocodone 10/325 up to 4 times a day, Cymbalta 30 mg daily, Premarin 0.45 mg daily, Voltaren gel as needed, aspirin 81 mg daily and Synthroid 75 mcg daily. PQRS: 1. She has significant osteoarthritis in her hips and her knees. Denies rheumatoid arthritis. 2. Height is 5 feet 2 inches, weight is 164 and BMI is 30. 3. Vital signs: Blood pressure 136/93, pulse is 107, respirations 16 and oxygen sat 97. 4. Pain score is 9/10. 5. Fall risk. Denies dizziness, does not need help walking or standing. She has not fallen in the last 3 months. 6. The patient is not on any blood thinners and does take medicine for hypertension. 7. Opioid therapy is greater than 6 weeks; therefore, an opioid signed contract [address] [address] PAIN MANAGEMENT CONSULTATION Name: ANIRUDH TARIQ Room #: REG CLCas Mcgrath#: [id number] Admission: 01/12/19 ������������������ Attend Phys: Jolie Thompson Discharge: ������������������ Date of : 48 Report #: [id number] is on the chart. 8. Her risk assessment tool is low. Her functional assessment is 70/70. 9. Recreational drug use, she denies. She is a former smoker and does not drink alcohol. We did check the prescription monitoring system. The patient is filling in a timely fashion from Dr. Toño Christie. No aberrant fills noted this past month. The patient does have a drug screen on the chart within the past year. PHYSICAL EXAMINATION: GENERAL: The patient is alert and orientated, does not appear to be overmedicated. Her affect is appropriate. She is a well-developed and well-nourished black female of 68 years old. NECK: Without adenopathy or JVD. She does sound congested today and has a runny nose. MUSCULOSKELETAL: The patient has limited range of motion in her lower back. She does complain of some tenderness in her left hip area. Straight leg raising is positive. Muscle strength is judged to be 5/5 bilaterally in all major muscle groups. ASSESSMENT: 1. Post-laminectomy syndrome with radiculopathy. 2. Trochanteric bursitis on the left. 3. Management of high risk medications. We reviewed the fact that opiate medications are being used to provide analgesia adequate to support activities of daily living, not attempting to achieve a specific pain score on the 0-10 Visual Analog Scale. The current opiate medications are providing sufficient analgesia to allow the patient to participate in activities of daily living. The patient is not exhibiting any aberrant behavior suggestive of drug diversion. The patient is not having any adverse reactions to medications. The patient is not suffering from daytime somnolence or mental acuity changes. The patient is managing opiate-induced constipation with appropriate qgxu-qhu-equcwwe agents and dietary considerations. The patient was counseled on concern for caution with operating a motor vehicle while using opiate medications. A physical exam was performed and the patient's functional status was evaluated. All patients with back pain were advised against the bed rest greater than 4 days and were advised to return to normal activities. Pain score assessment was noted and the treatment plan was reviewed with the patient. All current medications, both prescribed and OTC were reviewed and reconciled on the electronic medical record. Tobacco screening was accomplished and smoking cessation was advised when indicated. BMI was noted and diet/exercise modification was recommended for all patients following outside normal parameters. [address] [place] [address] PAIN MANAGEMENT CONSULTATION Name: ANIRUDH TARIQ Room #: REG BRADEN M.R.#: [id number] Admission: 01/12/19 ������������������ Attend Phys: Jolie Thompson Discharge: ������������������ Date of : 48 Report #: [id number] I reviewed with the patient today their responsibilities to safeguard prescription medications, reviewed their responsibility to utilize medications only as prescribed by the physician. They are to seek and receive pain medications only from 1 physician group ( [facility]). They are to use 1 pharmacy and keep the clinic informed if they change pharmacies. Their responsibilities include making followup visits in a timely fashion and to avoid abrupt discontinuation of medication usage. Their responsibilities further include bringing their medications (bottles from the pharmacy with residual pills) to the visit for possible confirmation of pill counts and the patient understands it is their responsibility to submit to random drug screens to ensure both that the medications prescribed are present, and that no other controlled substances are present. All prescriptions provided today were generated electronically. PLAN: We discussed treatment options today. The patient feels like the hydrocodone medication is helping her much better than the Suboxone. I reminded the patient that she is to take 4 tablets a day and to use her pillbox, not to take extra. She tells me that she was out a week early, but has gone without her medications for the past week doing caring for her . I reiterated that she is to use the pill box placing 4 pills in each day and to not take her medications early. Scripts given today for her hydrocodone 10/325, #120 and Cymbalta 30 mg 1 p.o. daily with two additional refills. Dr Pardeep Garcia name was also given to her for an option for orthopedic care for her hip. Dr. Christie did see the patient today and collaborated with care. ��������������������������������������������� <ELECTRONICALLY SIGNED> ���������������������������������������� By: Jolie Thompson ��������������������������������������������� 01/13/19 0854 [id number] Jolie Thompson /nt
== END ==
LOC: PAIN 11-27 07:02
DX: M54.16 Radiculopathy, lumbar region (principal); M96.1 Postlaminectomy syndrome, not elsewhere classified; M70.62 Trochanteric bursitis, left hip; Y93.9 Activity, unspecified; Z79.899 Other long term (current) drug therapy

== ENCOUNTER → 2019-02-10 | Outpatient (CLI) | payer OTHER ==
[~2019-02-10] VITALS: Ht 157.5 cm; Wt 78.7 kg
[2019-02-10 09:07] VITALS: BP 145/95
--- NOTE | 2019-02-10 09:38 | NUR ---
Pain Clinic Assessment: 1. History of Osteoarthritis: Left Lower Extremity History of Rheumatoid Arthritis: Not Applicable 2. Height: 5 ft. 2 in. 157.5 cm. Weight: 173.6 lb. oz. 78.744 kg. Patient's BMI: 31.7 3. Vital Signs: BP: 145/95 Pulse: 106 Resp: 20 Temp: 02 Sat: 97 ECG Mon: 4. Pain Intensity: 9 5. Fall Risk: Dizziness: Y Needs help standing or walking: N Fallen in the last 3 months: N Fall risk comments: 6. Patient on Blood Thinner: None 7. History of Hypertension: Y 8. Opioid Therapy greater than 6 weeks: Y Opiate Contract Signed: 05/24/16 9. Risk Assessment Tool Provided: LOW RISK 1 10. Functional Assessment Tool: 70/70 11. Recreational Drug Use: Never Drug Type: Tobacco Use: Former Smoker Tobacco Type: Amount or Packs/day: How Many Years: Alcohol Use: No Frequency: Quant:
--- NOTE | 2019-02-11 07:54 | HPC ---
[facility] [address] [place] [address] PAIN MANAGEMENT CONSULTATION Name: ANIRUDH TARIQ Room #: REG Cas Mcgrath#: [id number] Admission: 02/10/19 ������������������ Attend Phys: Jolie Thompson Discharge: ������������������ Date of : 48 Report #: [id number] THIS REPORT FOR: //name// CC: Jolie Fernández DATE OF SERVICE: 02/10/2019 CHIEF COMPLAINT: Chronic back pain, post-laminectomy with fusion. HISTORY OF PRESENT ILLNESS: This is a very pleasant 68-year-old female who returns to the Pain Clinic today for refill of her medications. We had seen her about a month ago and since that time, she has lost her and has had some increased pain dealing with his and she tells me that she has out of her pain medicines only a couple days ago. She tells me that she also has bronchitis. Last time we saw her a month ago, she had had the flu, so she is on antibiotic therapy and trying to get feeling better. The patient tells me that her plan is to move out of her current apartment and have her kids and her 's kids go through things and move in with her daughter temporarily until she decides where she would like to live in some [facility] center. The patient tells me today that her pain score is 9/10 because she has been out of her pain medicines. She is telling me that she had fell about a year ago at least a year to 6 months ago and continues to have pain that radiates from her back and burning pain in her left leg, wondering if there was injection that might help her relieve some of that pain. She tells me her pain is worse with walking and activity. She would like a refill of her medicines today. ALLERGIES: PENICILLIN. CURRENT MEDICATIONS LIST: Duloxetine 30 mg daily, albuterol inhaler as needed, Maxzide 37.5/25 daily, Norvasc 10 mg daily, Lyrica 75 mg daily, mirtazapine 15 mg at bedtime, hydrocodone 10/325 four times a day, Premarin 0.45 mg daily, Voltaren gel as needed, aspirin 325 mg daily and Synthroid 75 mcg daily. PQRS: 1. She has lower extremity osteoarthritis. Denies rheumatoid arthritis. 2. Height is 5 feet 2 inches, weight is 173 and BMI is 31. Vital signs: Blood pressure 145/95, pulse is 106, respirations 20 and oxygen sat is 97. 3. Pain score is 9/10. 4. Fall risk. Complains of dizziness, does not need help walking or standing, has not fallen in the last 3 months. 5. The patient is not on any blood thinners and she does take medicine for hypertension. 6. Opioid therapy is greater than 6 weeks, therefore, an opioid signed contract is on the chart. 7. Risk assessment tool is low. Functional assessment is 70/70. [address] [address] PAIN MANAGEMENT CONSULTATION Name: TARIQANIRUDH VIZCARRA Room #: REG BRADEN Mcgrath#: [id number] Admission: 02/10/19 ������������������ Attend Phys: Jolie Thompson Discharge: ������������������ Date of : 48 Report #: [id number] 8. Recreational drug use, she denies. She is a former smoker and does not drink alcohol. We did check the prescription monitoring system. The patient is due for her medications today and she fills only from Dr. Toño Christie. The patient does have a drug screen on the chart that is recent. She tells me she does safeguard her medications. PHYSICAL EXAMINATION: GENERAL: This is alert and orientated 68-year-old female who appears her stated age. Her affect is appropriate. She does not hear any signs of overmedication. NECK: Without adenopathy or JVD. MUSCULOSKELETAL: She has pain that is radiating from her lower back into her left leg. Tells me that it is burning in her calf. This follows the L4-L5 distribution. The patient does walk with an antalgic gait. Lower extremity strength judged to be 5/5 in lower muscle groups. We reviewed the fact that opiate medications are being used to provide analgesia adequate to support activities of daily living, not attempting to achieve a specific pain score on the 0-10 Visual Analog Scale. The current opiate medications are providing sufficient analgesia to allow the patient to participate in activities of daily living. The patient is not exhibiting any aberrant behavior suggestive of drug diversion. The patient is not having any adverse reactions to medications. The patient is not suffering from daytime somnolence or mental acuity changes. The patient is managing opiate-induced constipation with appropriate uutq-edm-zbvgjoe agents and dietary considerations. The patient was counseled on concern for caution with operating a motor vehicle while using opiate medications. A physical exam was performed and the patient's functional status was evaluated. All patients with back pain were advised against the bed rest greater than 4 days and were advised to return to normal activities. Pain score assessment was noted and the treatment plan was reviewed with the patient. All current medications, both prescribed and OTC were reviewed and reconciled on the electronic medical record. Tobacco screening was accomplished and smoking cessation was advised when indicated. BMI was noted and diet/exercise modification was recommended for all patients following outside normal parameters. I reviewed with the patient today their responsibilities to safeguard prescription medications, reviewed their responsibility to utilize medications only as prescribed by the physician. They are to seek and receive pain medications only from 1 physician group ( [facility]). They are to use 1 pharmacy and keep the clinic informed if they change pharmacies. Their responsibilities include making followup visits in a timely fashion and to avoid abrupt discontinuation of medication usage. Their responsibilities further [facility] [address] [place] [address] PAIN MANAGEMENT CONSULTATION Name: ANIRUDH TARIQ Room #: REG BRADEN Mcgrath#: [id number] Admission: 02/10/19 ������������������ Attend Phys: Jolie Thompson Discharge: ������������������ Date of : 48 Report #: [id number] include bringing their medications (bottles from the pharmacy with residual pills) to the visit for possible confirmation of pill counts and the patient understands it is their responsibility to submit to random drug screens to ensure both that the medications prescribed are present, and that no other controlled substances are present. All prescriptions provided today were generated electronically. ASSESSMENT: 1. Post-laminectomy syndrome with radiculopathy. 2. Management of high risk medications. PLAN: 1. Today, we discussed treatment options. The patient is here for refill of her medications. Scripts given today for hydrocodone 10/325, #120 for 1 month and mirtazapine 15 mg 1 p.o. at bedtime, quantity 30 with 2 additional refills. 2. We did discuss a possible epidural in the lumbar spine for this patient since she has had ongoing lumbar radiculopathy. The patient is agreeable to try this. She tells me that it had been helpful in the past. The last injection, she had was for her trochanteric bursitis by Dr. Toño Christie and she tells me that problem is not bothering her anymore. This is ongoing radicular pain. Appointment will be scheduled for 1 month time period for the injection as well as her medication refill on that day. 3. The patient denies any daytime sleepiness or any constipation issues from her narcotic use. 4. The patient is seen in collaboration today with Dr. Chris Buchanan. ��������������������������������������������� <ELECTRONICALLY SIGNED> ���������������������������������������� By: Jolie Thompson ��������������������������������������������� 02/11/19 0754 [id number] Jolie Thompson /nt
== END ==
LOC: PAIN 06:50
DX: M96.1 Postlaminectomy syndrome, not elsewhere classified (principal); M54.16 Radiculopathy, lumbar region; G89.29 Other chronic pain; Z79.891 Long term (current) use of opiate analgesic; Z88.0 Allergy status to penicillin; Z79.899 Other long term (current) drug therapy

== ENCOUNTER → 2019-03-12 | Outpatient (CLI) | payer OTHER ==
[~2019-03-12] VITALS: Ht 162.6 cm; Wt 83.1 kg
[~2019-03-12] MED LIST changes: +MS CONTIN15 MG PO
--- NOTE | ~2019-03-12 | HPC ---
[facility] [address] [place] [address] PAIN MANAGEMENT CONSULTATION Name: ANIRUDH TARIQ Room #: REG BRADEN MDylan.#: [id number] Admission: 03/12/19 ������������������ Attend Phys: Toño Christie MD Discharge: ������������������ Date of : 48 Report #: [id number] THIS REPORT FOR: //name// CC: ROGERIO Christie DATE OF SERVICE: 03/12/2019 Followup visit for post-laminectomy syndrome with radiculopathy. The patient returns to pain clinic today for medication management. We have been trying to keep her medications stable and keep her on a regimen. She is currently receiving Cymbalta, Lyrica, mirtazapine and hydrocodone for her chronic pain. She is not on a baseline opioid. She has a tendency to take more hydrocodone than prescribed. I do not think this is addiction as much as it is perhaps the old concept of pseudoaddiction. I believe that she does have pain status post laminectomy with fusion. Without pain relief, she simply lies around in bed. When she is receiving better pain relief, she actually is more active. With that in mind, I have elected to go ahead and proceed with the initiation of a baseline opioid. We will put her on MS Contin 15 mg twice a day and allow her to take her 4 hydrocodone per day. She actually has been taking about 60 morphine milligram a day, so this is an increase of about 15% in her medication, but more baseline in nature. We also decided today that we will proceed with a lumbar epidural injection above the level of her fusion. I have performed this in the past and has been helpful for her. PHYSICAL EXAMINATION: VITAL SIGNS: Blood pressure 143/89, heart rate 89, respirations 20, O2 sat 98%. GENERAL: She is pleasant, alert and oriented. She shows no signs of overmedication, depression or anxiety. She is 5 feet 4 inches, 182 pounds, BMI of 31.4. She was lying on the cart when I came into the room. She was able to independently move from supine to sitting, sitting to standing, but complains as she makes each maneuver. She scores her pain at a 10/10. She walks with marked antalgic features. She has limited range of motion of the lumbar spine. IMPRESSION: 1. Chronic intractable low back pain, post-laminectomy with fusion. 2. Management of high risk medication. PLAN: 1. MS Contin [address] [place] [address] PAIN MANAGEMENT CONSULTATION Name: ANIRUDH TARIQ Room #: REG [facility].#: [id number] Admission: 03/12/19 ������������������ Attend Phys: Toño Christie MD Discharge: ������������������ Date of : 48 Report #: [id number] 2. Hydrocodone 10/325 q. 6 hours for breakthrough #120 tablets per month. 3. Epidural injection, L2-L3 above the level of fusion. PROCEDURE: She was taken to fluoroscopic suite for the injection, placed prone, skin prepped with ChloraPrep. Skin anesthetized at L2-L3. A 20-gauge Tuohy epidural needle was advanced in the epidural space in the first attempt using loss of resistance technique. There was no blood or CSF aspirated. A 1 mL of Omnipaque injected. Good spread of dye observed in the epidural space followed by 3 mL of 0.5% lidocaine mixed with 80 mg of triamcinolone. She tolerated the procedure well, was observed for 45 minutes and discharged. Followup as needed in 1-2 months for medication management issues. She frequently calls clinic and often speaks with Anna Dutton. Anna has been working hard to try and help her with medication management to keep it well established. We will continue with the contact to keep close monitoring on her medication use. ��������������������������������������������� ���������������������������������������� By: ��������������������������������������������� [id number] Toño Christie MD /nt
[2019-03-12 09:50] VITALS: BP 143/89
--- NOTE | 2019-03-12 10:07 | NUR ---
Pain Clinic Assessment: 1. History of Osteoarthritis: Left Lower Extremity History of Rheumatoid Arthritis: Not Applicable 2. Height: 5 ft. 4 in. 162.6 cm. Weight: 183.2 lb. oz. 83.099 kg. Patient's BMI: 31.4 3. Vital Signs: BP: 143/89 Pulse: 89 Resp: 20 Temp: 02 Sat: 98 ECG Mon: 4. Pain Intensity: 10 5. Fall Risk: Dizziness: N Needs help standing or walking: Y Fallen in the last 3 months: N Fall risk comments: 6. Patient on Blood Thinner: None 7. History of Hypertension: Y 8. Opioid Therapy greater than 6 weeks: Y Opiate Contract Signed: 05/24/16 9. Risk Assessment Tool Provided: LOW RISK 1 10. Functional Assessment Tool: 70/70 11. Recreational Drug Use: Never Drug Type: Tobacco Use: Former Smoker Tobacco Type: Amount or Packs/day: How Many Years: Alcohol Use: No Frequency: Quant:
== END | disposition home or self-care (01) ==
LOC: PAIN 06:47
DX: M54.16 Radiculopathy, lumbar region (principal); G89.29 Other chronic pain; M96.1 Postlaminectomy syndrome, not elsewhere classified; Z98.890 Other specified postprocedural states; Z79.891 Long term (current) use of opiate analgesic; Z87.891 Personal history of nicotine dependence; Z88.0 Allergy status to penicillin

== ENCOUNTER → 2019-06-22 | Outpatient (CLI) | payer OTHER ==
[~2019-06-22] VITALS: Ht 162.6 cm; Wt 90.9 kg
[~2019-06-22] MED LIST changes: +KLOR-CON 1010 MEQ PO; +SOMA250 MG PO
--- NOTE | ~2019-06-22 | HPC ---
[facility] [address] [place] [address] PAIN MANAGEMENT CONSULTATION Name: ANIRUDH TARIQ Room #: REG [facility] M..#: [id number] Admission: 06/22/19 Attend Phys: Toño Christie MD Discharge: Date of : 48 Report #: [id number] THIS REPORT FOR: //name// CC: Kurt Christie DATE OF SERVICE: 06/22/2019 SUBJECTIVE: The patient is a pleasant 69-year-old female who is here today for followup. She has chronic pain and is followed by our medication management team. She has had a hard time keeping her medication at established doses. We have been seeing her at monthly intervals. She is here today with trochanteric bursitis, would like an injection. I have been able to provide her with good improvement with injections. Her last epidural was quite helpful, and she denies radicular pain. She complains mostly of tenderness along the trochanteric bursa on the left. This affects her ability to walk and perform day-to-day activities. I reviewed medications with her at length. She is nearly out of her oxycodone. She does not feel that the morphine sulfate, which she takes twice a day as a baseline, is helpful. I have elected to take her off of it and we will increase her hydrocodone slightly. This will actually lower her MME. She is on Cymbalta 30 mg daily, which was quite helpful, albuterol, triamterene, amlodipine, estrogens, diclofenac gel, aspirin, levothyroxine and carisoprodol. ALLERGIES: PENICILLIN. PHYSICAL EXAMINATION: VITAL SIGNS: Blood pressure 161/111, heart rate 93, respirations 20. She is 5 feet 4 inches, 200 pounds, BMI 34.4. MUSCULOSKELETAL: She moves from sitting to standing position, walks with antalgic feature. She has tenderness over the greater trochanter on the left. Negative straight leg raising. PQRS: 1. Positive for osteoarthritis, particularly of the left lower extremity. She has hip arthritis. 2. BMI is 34.4. Weight has been discussed as an important factor in her ongoing pain. 3. Vital signs as noted. 4. Pain intensity 08/13. 5. She is a fall risk. 6. No blood thinners. [facility] [address] [place] [address] PAIN MANAGEMENT CONSULTATION Name: ANIRUDH TARIQ [id number] Admission: 06/22/19 Attend Phys: Toño Christie MD Discharge: Date of : 48 Report #: [id number] 7. History of hypertension under treatment. 8. She is on an opioid agreement and is followed at monthly intervals. 9. She is at low risk by the opioid risk tool, but she has trouble managing her medicines. 10. She scores 10/10 on every aspect of functional assessment tool. It may not be accurate. 11. She denies use of tobacco or alcohol. IMPRESSION: 1. Post-laminectomy syndrome with radiculopathy. She has had a previous fusion. 2. Left trochanteric bursitis. 3. Management of high-risk medications. PLAN: 1. Medications for her chronic low back pain will be adjusted and she will be now on 6 hydrocodone, 10/325, and we will take her completely off the morphine. Her previous MME was 70. 2. Trochanteric bursa injection. PROCEDURE: Skin was prepped with ChloraPrep and anesthetized. A 25-gauge needle was used to infiltrate the left trochanteric bursa with a total of 5 mL of 0.5% bupivacaine and 40 mg of triamcinolone. She tolerated the procedure well and was observed for 45 minutes and discharged. Follow up as needed. Twenty five minutes in counseling today regarding medication. By: [id number] Toño Christie MD /nt
[2019-06-22 11:07] VITALS: BP 161/111
--- NOTE | 2019-06-22 11:24 | NUR ---
Pain Clinic Assessment: 1. History of Osteoarthritis: Left Lower Extremity History of Rheumatoid Arthritis: Not Applicable 2. Height: 5 ft. 4 in. 162.6 cm. Weight: 200.4 lb. oz. 90.901 kg. Patient's BMI: 34.4 3. Vital Signs: BP: 161/111 Pulse: 93 Resp: 20 Temp: 02 Sat: 100 ECG Mon: 4. Pain Intensity: 10 5. Fall Risk: Dizziness: N Needs help standing or walking: N Fallen in the last 3 months: N Fall risk comments: 6. Patient on Blood Thinner: None 7. History of Hypertension: Y 8. Opioid Therapy greater than 6 weeks: Y Opiate Contract Signed: 05/24/16 9. Risk Assessment Tool Provided: LOW RISK 1 10. Functional Assessment Tool: 70/70 11. Recreational Drug Use: Never Drug Type: Tobacco Use: Former Smoker Tobacco Type: Amount or Packs/day: How Many Years: Alcohol Use: No Frequency: Quant:
== END | disposition home or self-care (01) ==
LOC: PAIN 06:56
DX: M70.62 Trochanteric bursitis, left hip (principal); M16.12 Unilateral primary osteoarthritis, left hip; G89.29 Other chronic pain; M54.16 Radiculopathy, lumbar region; M96.1 Postlaminectomy syndrome, not elsewhere classified; I10 Essential (primary) hypertension; Z79.891 Long term (current) use of opiate analgesic; Z88.0 Allergy status to penicillin; Z98.890 Other specified postprocedural states; Z79.899 Other long term (current) drug therapy; Z87.891 Personal history of nicotine dependence

== ENCOUNTER → 2019-08-20 | Outpatient (CLI) | payer OTHER ==
[~2019-08-20] VITALS: Ht 157.5 cm; Wt 90.7 kg
[~2019-08-20] MED LIST changes: +BIOFREEZE118 ML TOP; +BUSPIRONE HCL5 MG PO; +REMERON15 M2 PO
[2019-08-20 09:52] VITALS: BP 157/101
--- NOTE | 2019-08-20 09:57 | NUR ---
Pain Clinic Assessment: 1. History of Osteoarthritis: Left Lower Extremity History of Rheumatoid Arthritis: Not Applicable 2. Height: 5 ft. 2 in. 157.5 cm. Weight: 200.0 lb. oz. 90.720 kg. Patient's BMI: 36.6 3. Vital Signs: BP: 157/101 Pulse: 100 Resp: 18 Temp: 02 Sat: 97 ECG Mon: 4. Pain Intensity: 10 5. Fall Risk: Dizziness: N Needs help standing or walking: N Fallen in the last 3 months: N Fall risk comments: 6. Patient on Blood Thinner: None 7. History of Hypertension: Y 8. Opioid Therapy greater than 6 weeks: Y Opiate Contract Signed: 05/24/16 9. Risk Assessment Tool Provided: LOW RISK 1 10. Functional Assessment Tool: 70/70 11. Recreational Drug Use: Never Drug Type: Tobacco Use: Former Smoker Tobacco Type: Amount or Packs/day: How Many Years: Alcohol Use: No Frequency: Quant:
--- NOTE | 2019-08-21 11:28 | HPC ---
[facility] [address] [place] [address] PAIN MANAGEMENT CONSULTATION Name: ANIRUDH TARIQ Room #: REG [facility]#: [id number] Admission: 08/20/19 Attend Phys: Jolie Thompson Discharge: Date of : 48 Report #: [id number] THIS REPORT FOR: //name// CC: Jolie Parksabdiaziz [facility] DATE OF SERVICE: 08/20/2019 CHIEF COMPLAINT: Post-laminectomy syndrome with radiculopathy, low back pain and left hip pain. HISTORY OF PRESENT ILLNESS: This is a 69-year-old female who returned to the pain clinic today for her chronic pain issues and medication management. She recently went to the Emergency Room at [place] for ongoing left hip pain and her bursa. She reports that she was out of medication because she is needing more pills per day than we are allowing her and her left hip was hurting significantly. She also had a headache and has a history of aneurysm and was worried about that when she went to the Emergency Room. She reports that she received a prescription from them, but did not fill the script. I do not see where she had filled that prescription as of today. The patient does report a pain score of 10/10, worse with walking and standing. She is in a wheelchair present today. She feels that when she takes her medication, it is helpful, but when she has 6 a day, she runs out and she is requesting more medication today. ALLERGIES: PENICILLIN. CURRENT LIST OF MEDICATIONS: Buspirone 5 mg 3 times a day, hydrocodone 10/325 up to 6 per day, Soma 250 b.i.d., mirtazapine 15 mg at bedtime, Cymbalta 30 mg daily, potassium 10 mEq daily, triamterene/hydrochlorothiazide daily, amlodipine 10 mg daily, Premarin 0.5 mg daily, Voltaren gel as needed, aspirin 325 mg daily and Synthroid 75 mcg daily. PQRS: 1. She has osteoarthritis in her lower extremities. Denies any rheumatoid arthritis. 2. Height is 5 feet 2 inches, weight is 200, BMI is 36. 3. Vital signs 157/101, pulse is 100, respirations 18, oxygen sat is 97. 4. Pain score is 10/10. 5. Denies dizziness. Does need help walking and has not fallen in the last 3 months. 6. The patient is not on any blood thinners, but does take medicine for hypertension. 7. Opiate therapy is greater than 6 weeks; therefore, an opiate signed contract is on the chart. 8. Risk assessment tool is low. Functional assessment is 70/70[place] [address] PAIN MANAGEMENT CONSULTATION Name: MARCIANONGAANIRUDHXANDER VIZCARRA Room #: REG [facility] Mc[facility]ath#: [id number] Admission: 08/20/19 Attend Phys: Jolie Thompson Discharge: Date of : 48 Report #: [id number] 9. Recreational drug use, she denies. She is a former smoker and does not drink alcohol. According to the prescription monitoring system, the patient has filled her last prescription on 07/27/2019, is out of her medications today. She does not have any aberrant fills this month that she had several fills in July from her rack carrier. She was counseled on filling medications only from one prescriber that being Dr. Toño Christie and no others according to her contract, which she has violated several times in the past. The patient verbalizes understanding of this agreement. There is a recent drug screen on the chart that is appropriate for her medications. PHYSICAL EXAMINATION: GENERAL: This is a 69-year-old female who appears her stated age, placing her current pain score at 10/10, slightly obese. She is alert and orientated. HEENT: Normocephalic, atraumatic. Extraocular eye muscles are intact. Mucous membranes are moist. MUSCULOSKELETAL: The patient complains of left hip tenderness on examination over her greater trochanteric bursa on the left, does not radiate into her lower extremity. She has lumbar back pain as well that is present today. Pain is worse with standing and walking. She walks with antalgic gait. She moves from sitting to standing position with great pain. IMPRESSION: 1. Post-laminectomy syndrome with radiculopathy. 2. Left trochanteric bursitis. 3. Management of high risk medications under terms of written opioid agreement. We reviewed the fact that opiate medications are being used to provide analgesia adequate to support activities of daily living, not attempting to achieve a specific pain score on the 0-10 Visual Analog Scale. The current opiate medications are providing sufficient analgesia to allow the patient to participate in activities of daily living. The patient is not exhibiting any aberrant behavior suggestive of drug diversion. The patient is not having any adverse reactions to medications. The patient is not suffering from daytime somnolence or mental acuity changes. The patient is managing opiate-induced constipation with appropriate akht-qyc-fpluqgc agents and dietary considerations. The patient was counseled on concern for caution with operating a motor vehicle while using opiate medications. A physical exam was performed and the patient's functional status was evaluated. All patients with back pain were advised against the bed rest greater than 4 days and were advised to return to normal activities. Pain score assessment was noted and the treatment plan was reviewed with the patient. All current medications, both prescribed and OTC were reviewed and reconciled on the electronic medical record. Tobacco screening was accomplished and smoking [facility] [address] [place] [address] PAIN MANAGEMENT CONSULTATION Name: ANIRUDH TARIQ Room #: REG [facility].#: [id number] Admission: 08/20/19 Attend Phys: Jolie Thompson Discharge: Date of : 48 Report #: [id number] cessation was advised when indicated. BMI was noted and diet/exercise modification was recommended for all patients following outside normal parameters. I reviewed with the patient today their responsibilities to safeguard prescription medications, reviewed their responsibility to utilize medications only as prescribed by the physician. They are to seek and receive pain medications only from 1 physician group ( [facility]). They are to use 1 pharmacy and keep the clinic informed if they change pharmacies. Their responsibilities include making followup visits in a timely fashion and to avoid abrupt discontinuation of medication usage. Their responsibilities further include bringing their medications (bottles from the pharmacy with residual pills) to the visit for possible confirmation of pill counts and the patient understands it is their responsibility to submit to random drug screens to ensure both that the medications prescribed are present, and that no other controlled substances are present. All prescriptions provided today were generated electronically. PLAN: A great deal of time was spent counseling the patient today about her medication usage. The patient is requesting more pills. Dr. Christie was present for part of this discussion explaining to her that she needs to manage her pain with the 6 pills that she was given per day, not getting medications from other doctors. The patient verbalized she will try to take only 6 pills a day. This is one month supply. She is out of those today, but we will allow her to fill them early this time only. Scripts given for her hydrocodone 10/325, #180 for today and 4-week release. This does place the patient at 60 morphine milliequivalents per day according to the CDC guidelines. We discussed meditation, heat, ice, exercise as alternatives for pain control. I did give her information on [facility] information that does have yoga as well as meditation classes. I encouraged the patient to try and be as active as possible that yes, pain is caused with movement, but the pain is also worse with sitting still and not doing anything. The patient has gained 30 pounds since November. I explained to the patient that she needs to try to control her diet because the weight gain also causes increase in pain. The patient verbalized understanding. She tells me that she will try to call [facility] and attend some of their classes. 2. Appointment made for 09/08/2019 for a trochanteric bursa injection by Dr. Toño Christie. 3. Scripts also given for Cymbalta 30 mg tablets, #90 with 2 additional refills, Remeron 15 mg #90 with 2 additional refills, and Soma 250 b.i.d., #80 with 2 additional refills. These are 3-month supplies with refills. [address] [address] PAIN MANAGEMENT CONSULTATION Name: ANIRUDH TARIQ Room #: REG [facility] Mc[facility]ath#: [id number] Admission: 08/20/19 Attend Phys: Jolie Thompson Discharge: Date of : 48 Report #: [id number] Toño Christie as stated above did see the patient today and collaborated care. <ELECTRONICALLY SIGNED> By: Jolie Thompson 08/21/19 [id number] Jolie Thompson /jhony
== END ==
LOC: PAIN 06:54
DX: M96.1 Postlaminectomy syndrome, not elsewhere classified (principal); M70.62 Trochanteric bursitis, left hip; Z79.891 Long term (current) use of opiate analgesic

== ENCOUNTER → 2019-09-07 | Outpatient (CLI) | payer OTHER ==
[~2019-09-07] VITALS: Ht 157.5 cm; Wt 90.7 kg
--- NOTE | ~2019-09-07 | HPC ---
[facility] [address] [address] PAIN MANAGEMENT CONSULTATION Name: ANIRUDH TARIQ Room #: REG [facility] Mcgrath#: [id number] Admission: 09/07/19 Attend Phys: Toño Christie MD Discharge: Date of : 48 Report #: [id number] THIS REPORT FOR: //name// CC: Kurt Christie DATE OF SERVICE: 09/07/2019 Followup visit for chronic low back pain with radiculopathy. The patient returns to pain clinic today. She is on an opioid agreement. She is told that she can take 6 hydrocodone 10/325 tablets a day along with her carisoprodol. She has been taking 10. She will be out in another day or two. The chart is full of issues with her medication. We have tried to put her on a schedule. We have tried a number of different medications over the years without success in adequately managing her pain. She has had extensive lumbar fusion and has daily pain, which she reports is a 10 plus. PQRS: 1. Positive for osteoarthritis, left ankle. 2. BMI 36.6. 3. Vital signs: Blood pressure 138/97, heart rate 110, O2 sat 100. 4. Pain intensity 10 plus. 5. She has some dizziness. 6. No blood thinners. 7. History of hypertension. 8. Opioid agreement signed first in 2015. We have been very diligently working to try and find a medication regimen that she will stick on, that will help her with her pain. We cannot simply increase her medications at every visit. 9. Functional assessment scores 70/70, which she uses as a cry for help, suggesting that she cannot do anything because her pain is so severe. 10. She denies use of tobacco or alcohol. MEDICATIONS: Reviewed and reconciled. PHYSICAL EXAMINATION: VITAL SIGNS: As noted above. GENERAL: She moves independently from sitting to standing position. Her gait is antalgic. CHEST: Clear. CARDIAC: Rhythm is regular. MUSCULOSKELETAL: Examination of the spine reveals a scar across her low back in her lumbosacral region from her previous fusion. There is tenderness across the area. She has bilateral straight leg raising discomfort. [facility] [address] [place] [address] PAIN MANAGEMENT CONSULTATION Name: ANIRUDH TARIQ Room #: REG [facility].#: [id number] Admission: 09/07/19 Attend Phys: Toño Christie MD Discharge: Date of : 48 Report #: [id number] IMPRESSION: Post-laminectomy syndrome with radiculopathy. RECOMMENDATIONS: 1. Epidural steroid injection under fluoroscopic guidance. 2. Suboxone 8/2 one tablet b.i.d. for 2 weeks. As she runs out of medication, she will not be able to refill her hydrocodone. I am not comfortable simply giving her another prescription for hydrocodone with her high dose of tablets. I have referred her also for psych consultation. 3. Continue Cymbalta. 4. Remeron 15 mg at bedtime. 5. Soma 250 mg b.i.d. 6. Epidural steroid injection under fluoroscopic guidance above the level of fusion. PROCEDURE: She was taken to fluoroscopic suite, placed prone, skin prepped with ChloraPrep. Skin anesthetized over the L2-L3 interspace. A 20-gauge Tuohy epidural needle was advanced in the epidural space in the first attempt with loss of resistance technique. There was no blood or CSF aspirated. A 1 mL of Omnipaque injected. Spread of dye observed into the epidural space, was followed by 3 mL of 0.5% lidocaine mixed with 80 mg triamcinolone. She tolerated the procedure well and was reserved in the recovery room with a 30% reduction in pain. Prescription was provided for Suboxone 8-2 b.i.d. Followup visit planned in 1 month. By: [id number] Toño Christie MD /nt
[2019-09-07 10:24] VITALS: BP 138/97
--- NOTE | 2019-09-07 10:29 | NUR ---
Pain Clinic Assessment: 1. History of Osteoarthritis: LEFT ANKLE LEFT FOOT History of Rheumatoid Arthritis: Not Applicable 2. Height: 5 ft. 2 in. 157.5 cm. Weight: 200.0 lb. oz. 90.720 kg. Patient's BMI: 36.6 3. Vital Signs: BP: 138/97 Pulse: 110 Resp: 16 Temp: 02 Sat: 100 ECG Mon: 4. Pain Intensity: 10+ 5. Fall Risk: Dizziness: Y Needs help standing or walking: N Fallen in the last 3 months: N Fall risk comments: PT STATES THAT LIVING WITH DAUGHTER AND DAUGHTER'S S/O WORRIED FOR DAUGHTERS AND GRANDDAUGHTERS SAFETY-DECLINDED INFORMATION FOR [place] HAS GOOD SUPPORT SYSTEM AND HELP NETWORK-DOES NOT FEAR FOR HER OWN SAFETY MUCH HER DAUGHTERS. 6. Patient on Blood Thinner: None 7. History of Hypertension: Y 8. Opioid Therapy greater than 6 weeks: Y Opiate Contract Signed: 05/24/16 9. Risk Assessment Tool Provided: LOW RISK 1 10. Functional Assessment Tool: 70/70 11. Recreational Drug Use: Never Drug Type: Tobacco Use: Former Smoker Tobacco Type: Amount or Packs/day: How Many Years: Alcohol Use: No Frequency: Quant:
== END | disposition home or self-care (01) ==
LOC: PAIN 06:49
DX: M54.16 Radiculopathy, lumbar region (principal); M96.1 Postlaminectomy syndrome, not elsewhere classified; M19.90 Unspecified osteoarthritis, unspecified site; G89.29 Other chronic pain; Z87.891 Personal history of nicotine dependence; Z88.0 Allergy status to penicillin; Z79.899 Other long term (current) drug therapy

== ENCOUNTER → 2019-10-19 | Outpatient (CLI) | payer OTHER ==
[~2019-10-19] VITALS: Ht 157.5 cm; Wt 92.1 kg
[2019-10-19 13:47] VITALS: BP 134/85
--- NOTE | 2019-10-19 14:00 | NUR ---
Pain Clinic Assessment: 1. History of Osteoarthritis: LEFT ANKLE LEFT FOOT History of Rheumatoid Arthritis: Not Applicable 2. Height: 5 ft. 2 in. 157.5 cm. Weight: 203.0 lb. oz. 92.080 kg. Patient's BMI: 37.1 3. Vital Signs: BP: 134/85 Pulse: 99 Resp: 18 Temp: 02 Sat: 95 ECG Mon: 4. Pain Intensity: 9 5. Fall Risk: Dizziness: N Needs help standing or walking: Y Fallen in the last 3 months: Y Fall risk comments: PT STATES THAT LIVING WITH DAUGHTER AND DAUGHTER'S S/O WORRIED FOR DAUGHTERS AND GRANDDAUGHTERS SAFETY-DECLINDED INFORMATION FOR [place] HAS GOOD SUPPORT SYSTEM AND HELP NETWORK-DOES NOT FEAR FOR HER OWN SAFETY MUCH HER DAUGHTERS. 6. Patient on Blood Thinner: None 7. History of Hypertension: Y 8. Opioid Therapy greater than 6 weeks: Y Opiate Contract Signed: 05/24/16 9. Risk Assessment Tool Provided: LOW RISK 1 10. Functional Assessment Tool: 70/70 11. Recreational Drug Use: Never Drug Type: Tobacco Use: Former Smoker Tobacco Type: Amount or Packs/day: How Many Years: Alcohol Use: No Frequency: Quant:
--- NOTE | 2019-10-20 08:20 | HPC ---
[facility] [address] [place] [address] PAIN MANAGEMENT CONSULTATION Name: ANIRUDH TARIQ Room #: REG [facility] M..#: [id number] Admission: 10/19/19 Attend Phys: Jolie Thompson Discharge: Date of : 48 Report #: [id number] THIS REPORT FOR: //name// CC: Jolie Christie MD DATE OF SERVICE: 10/19/2019 CHIEF COMPLAINT: Low back pain with radiculopathy. HISTORY OF PRESENT ILLNESS: This is a 69-year-old female who returns to the pain clinic today for refill of her medications. She is requesting a refill of hydrocodone as well as Suboxone. She would like to take both of those for her pain control. She is rating her pain in her low back that radiates down her left leg at 9/10 today. She feels that it is a burning, numbness, throbbing pain that is constant, worse with walking and standing and the weather changes have made her osteoarthritis worse. She feels that the medications together are very beneficial as well as lying down. She is here in a wheelchair today, though she did move from the wheelchair to the chair without any difficulty. The patient did report that a lumbar epidural steroid injection that Dr. Christie performed on her in September helped her 85-90% and is still continuing to feel better. She denies any problems with side effects such as daytime sleepiness or constipation that is not relieved by cvfu-rcn-bgihlhd medicines, Citracal from her opioids. ALLERGIES: PENICILLIN. CURRENT LIST OF MEDICATIONS: Suboxone 8/2 b.i.d., Biofreeze, Remeron, Cymbalta, Soma, buspirone, potassium, Maxzide, Norvasc, Premarin, Voltaren gel, aspirin, and Synthroid. PQRS: 1. She is positive for osteoarthritis in her ankle. Denies rheumatoid arthritis. 2. Height is 5 feet 2 inches, weight is 203, BMI is 37. 3. Vital signs 134/85, pulse is 99, respirations 18, oxygen sat is 95. 4. Pain score is 9/10. 5. Denies dizziness. Does need help walking, has fallen in the last 3 months. 6. The patient is not on any blood thinners, but does take medicine for hypertension. Her opioid therapy is greater than 6 weeks; therefore, an opioid signed contract is on the chart. Risk assessment tool is low. Functional assessment 70/70. 7. Recreational drug use, she denies. She [place] a [place] [address] PAIN MANAGEMENT CONSULTATION Name: ANIRUDH TARIQ Room #: [facility] M.Gifty.#: [id number] Admission: 10/19/19 Attend Phys: Jolie Thompson Discharge: Date of : 48 Report #: [id number] drink alcohol. According to the prescription monitoring system, the patient filled her last buprenorphine in September pastime to fill that medication, then she did fill hydrocodone in 09/[address] Toño Christie and has taken all of these medications and is out today. PHYSICAL EXAMINATION: GENERAL: This is alert and orientated 69-year-old slightly depressed female who appears her stated age, placing her current pain score at 9/10 today. HEENT: Normocephalic, atraumatic. Extraocular eye muscles are intact. Mucous membranes are moist. MUSCULOSKELETAL: She moves independently from sitting to standing position. Her gait is antalgic. She is in a wheelchair, but then moved to chair without difficulty. She has tenderness in her lumbosacral region that radiates down her bilateral legs. Her straight leg raising bilaterally causes some discomfort. She has 2+ edema in her right lower extremity today. IMPRESSION: 1. Post-laminectomy syndrome with radiculopathy. 2. Depression. 3. Management of high risk medications under terms of written opioid agreement. 4. Osteoarthritis. We reviewed the fact that opiate medications are being used to provide analgesia adequate to support activities of daily living, not attempting to achieve a specific pain score on the 0-10 Visual Analog Scale. The current opiate medications are providing sufficient analgesia to allow the patient to participate in activities of daily living. The patient is not exhibiting any aberrant behavior suggestive of drug diversion. The patient is not having any adverse reactions to medications. The patient is not suffering from daytime somnolence or mental acuity changes. The patient is managing opiate-induced constipation with appropriate [id number]-oea-[id number] agents and dietary considerations. The patient was counseled on concern for caution with operating a motor vehicle while using opiate medications. PLAN: 1. We discussed treatment options with the patient today. I explained to her that she is not able to take hydrocodone and Suboxone at the same time. It is Dr. Christie's plan to keep her only on Suboxone, the patient verbalizes understanding. We will refill that medication at 8/2 Suboxone twice a day. The patient may fill tablets or films whatever is cheapest for her. We will give her a prescription for today and 4-week fills. The patient verbalizes understanding. She really would like to have the hydrocodone as well. I explained to her again that Dr. Christie is not willing to fill that medication for her. [address] [address] PAIN MANAGEMENT CONSULTATION Name: ANIRUDH TARIQ Room #: REG [facility].#: [id number] Admission: 10/19/19 Attend Phys: Jolie Thompson Discharge: Date of : 48 Report #: [id number] 2. I did question the patient if she had found someone to have a psychological consultation with regarding her depression. The patient explains that she has not. She does not think that she needs that at this time. 3. The patient explained to me that she is going to go to [place] to stay with her son on Saturday for the holiday season. She is thinking about moving there permanently, but she will let us know. I explained to the patient that if she is out there greater than a month, she will need to have her daughter fill her prescription here and [employer] it, but she finds to her in [place] since she is unable to fill that medication there and she will need to find a physician in [place] to see her for medication management and injections. 4. The patient did find the injection very beneficial in controlling 85-90% of her pain. I explained to her that Dr. Christie would gladly repeat that injection for her in November or December if she is here in [place]. 5. The patient is seen in collaboration with Dr. Toño Christie. The patient discharged to home. <ELECTRONICALLY SIGNED> By: Jolie Thompson 10/20/19 0820 [id number] Jolie bermeo
== END ==
LOC: PAIN 07:23
DX: M96.1 Postlaminectomy syndrome, not elsewhere classified (principal); F32.9 Major depressive disorder, single episode, unspecified; M19.90 Unspecified osteoarthritis, unspecified site; Z79.891 Long term (current) use of opiate analgesic